=== PATIENT | female | born 1955 | race Caucasian/White ===

== ENCOUNTER → 2016-12-31 | Outpatient (CLI) | payer BC ==
[2016-12-31 10:06] LABS: ABSOLUTE EOSINOPHILS # (AUTO) 0.4 10^3/uL (0.0-0.6); ABSOLUTE LYMPHOCYTES (AUTO) 1.1 10^3/uL (0.5-4.7); ABSOLUTE MONOCYTES (AUTO) 0.5 10^3/uL (0.1-1.4); ABSOLUTE NEUT (AUTO) 6.4 10^3/uL (1.7-8.2); BASOPHILS % (AUTO) 0.5 % (0-2); EOSINOPHILS % (AUTO) 4.9 % (0-6); HEMATOCRIT 44.5 % (36.0-47.0); HGB HCT DIFFERENCE 0.5; MEAN CORPUSCULAR HEMOGLOBIN 32.5 pg (27.0-33.4); MEAN CORPUSCULAR HGB CONC 33.8 g/dL (32.0-36.0); MEAN CORPUSCULAR VOLUME 96 fl (80-97); MONOCYTES % (AUTO) 5.7 % (3-13); RED BLOOD COUNT 4.63 10^6/uL (3.72-5.28); RED CELL DISTRIBUTION WIDTH 14.7 % (11.5-14.0); SEGMENTED NEUTROPHILS % (AUTO) 75.9 % (42-78); WHITE BLOOD COUNT 8.5 10^3/uL (4.0-10.5)
[2016-12-31 10:07] LABS: APPEARANCE,URINE SLIGHTLY-CLOUDY; BILIRUBIN,URINE NEGATIVE (NEGATIVE); GLUCOSE, URINE NEGATIVE (NEGATIVE); KETONES,URINE NEGATIVE (NEGATIVE); LEUKOCYTE ESTERASE,URINE NEGATIVE (NEGATIVE); NITRITE,URINE NEGATIVE (NEGATIVE); PROTEIN,URINE >=500 mg/dL (NEGATIVE); URINE SPECIFIC GRAVITY 1.016; UROBILINOGEN,URINE NEGATIVE mg/dL (<2.0)
[2016-12-31 10:51] LABS: ALBUMIN 3.8 g/dL (3.5-5.0); ANION GAP 15 (5-19); BLOOD UREA NITROGEN 22 mg/dL (7-20); CARBON DIOXIDE 24 mmol/L (22-30); CHLORIDE 104 mmol/L (98-107); CREATININE RESULT 1.09 mg/dL (0.52-1.25); GLUCOSE 99 mg/dL (75-110); PHOSPHORUS 3.8 mg/dL (2.5-4.5); POTASSIUM 4.1 mmol/L (3.6-5.0); SODIUM 143.2 mmol/L (137-145)
[2017-01-01 12:38] LABS: CREATININE URINE 142.9 mg/dL (Not Estab.)
== END ==
LOC: OD 08:48
PROVIDERS: ATTEND Internal Medicine Nephrology
DX: N18.3 Chronic kidney disease, stage 3 (moderate) (principal); E11.29 Type 2 diabetes mellitus with other diabetic kidney complication; E55.9 Vitamin D deficiency, unspecified
CPT/HCPCS: 36415; 80048; 81001; 82040; 82306; 82570; 83036; 83970; 84100; 84156; 85025

== ENCOUNTER → 2017-03-27 | Outpatient (CLI) | payer BC ==
[2017-03-27 09:45] LABS: ANION GAP 10 (5-19); BLOOD UREA NITROGEN 28 mg/dL (7-20); CALCIUM 9.5 mg/dL (8.4-10.2); CARBON DIOXIDE 30 mmol/L (22-30); CHLORIDE 103 mmol/L (98-107); CREATININE RESULT 1.45 mg/dL (0.52-1.25); GLUCOSE 167 mg/dL (75-110); POTASSIUM 5.7 mmol/L (3.6-5.0); SODIUM 142.5 mmol/L (137-145)
[2017-03-27 09:59] LABS: URINE CREATININE 139.2 mg/dL (15-278)
[2017-03-27 10:05] LABS: URINE PROTEIN 265.7 mg/dL (<12)
== END ==
LOC: OD 08:39
PROVIDERS: ATTEND Internal Medicine Nephrology
DX: N18.3 Chronic kidney disease, stage 3 (moderate) (principal); R80.9 Proteinuria, unspecified; E55.9 Vitamin D deficiency, unspecified
CPT/HCPCS: 36415; 80048; 82306; 82570; 84156

== ENCOUNTER → 2017-04-04 | Outpatient (CLI) | payer BC | LOC: OD 08:41 | PROVIDERS: ATTEND Internal Medicine Nephrology | DX: E87.5 Hyperkalemia (principal) | CPT/HCPCS: 36415; 84132 ==

== ENCOUNTER → 2017-06-18 | Outpatient (CLI) | payer BC ==
--- NOTE | 2017-06-18 10:48 | WOMENS IMAGING REPORT ---
EXAM DESCRIPTION: BILAT SCREENING MAMMO W/CAD COMPLETED DATE/TIME: 06/18/2017 10:35 am REASON FOR STUDY: ROUTINE SCREENING; Z12.31 Z12.31 ENCNTR SCREEN MAMMOGRAM FOR MALIGNANT NEOPLASM O F RENALDO COMPARISON: 03/06/2016 and 12/20/2014. TECHNIQUE: Standard craniocaudal and mediolateral oblique views of each breast recorded using digita l acquisition. LIMITATIONS: None. FINDINGS: Findings present which are benign by mammographic criteria. No suspicious masses, calcifi cations or architectural distortion. Pertinent benign findings: Stable benign calcifications. Read with the assistance of CAD. .[facility] - R2 Cenova Version 1.3 .[facility] - R2 Cenova Version 1.3 .[facility] - R2 Cenova Version 2.4 .[facility] [place]2 Cenova Version 2.4 .[facility] - R2 Metal Work Duct Installer Version 9.2 Benign mammographic findings may include one or more of the following: Smooth masses, popcorn/rim/co arse calcifications, asymmetries, post-procedure changes, and lesions with long-standing stability. IMPRESSION: BENIGN MAMMOGRAPHIC FINDINGS. BIRADS 2 BREAST DENSITY: b. There are scattered areas of fibroglandular density. BIRAD: 2 BENIGN FINDING(S) RECOMMENDATION: ROUTINE SCREENING COMMENT: The patient has been notified of the results by letter per SA requirements. Additional no tification policies are in place for contacting patient with suspicious or incomplete findings. Quality ID #[id number]: The [employer] recommends an annual screening mammogram for women aged 40 years or over. This facility utilizes a reminder system to ensure that all patients receive reminder letters, and/or direct phone calls for appointments. This includes reminders for routine scr eening mammograms, diagnostic mammograms, or other Breast Imaging Interventions when appropriate. Th is patient will be placed in the appropriate reminder system. The [employer] (ACR) has developed recommendations for screening MRI of the breast s in certain patient populations, to be used in conjunction with mammography. Breast MRI surveillanc e may be appropriate for women with more than 20% lifetime risk of developing breast cancer as deter mined by genetic testing, significant family history of the disease, or history of mantle radiation f or Hodgkins Disease. ACR Practice Guidelines 2008. TECHNICAL DOCUMENTATION: FINDING NUMBER: (1) ASSESSMENT: (1) JOB ID: [id number] [employer]- All Rights Reserved
== END ==
LOC: WI 10:09
PROVIDERS: ATTEND Family Medicine
DX: Z12.31 Encounter for screening mammogram for malignant neoplasm of breast (principal)
CPT/HCPCS: 77067; G0202

== ENCOUNTER → 2018-12-11 | Outpatient (CLI) | payer BC ==
--- NOTE | 2018-12-11 19:23 | XCELERA REPORT ---
[address] [address] Transthoracic Echocardiogram Report Name: DENNIS FLORES Age: 63 yrs Gender: Female : 1955 Patient Status: Outpatient Patient Location: [facility] Study Date: 12/11/2018 11:21 AM Height: 63 in Weight: 260 lb BSA: 2.2 m2 Procedure: A complete two-dimensional transthoracic echocardiogram was performed (2D, M-mode, spectral and color flow Doppler). The study was technically adequate with some images being suboptimal in quality. Reason For Study: MURMUR Ordering Physician: BAYRON PURDY Performed By: Saundra Blank Interpretation Summary The left ventricular ejection fraction is normal. There is mild concentric left ventricular hypertrophy. The left ventricle is grossly normal size. Doppler measurements suggest pseudonormalized left ventricular relaxation, which is associated with grade II/IV or mild to moderate diastolic dysfunction Wall motion cannot be accurately commented on, but no definite regional wall motion abnormalities noted. The right ventricular systolic function is normal. The right atrium is normal in size Borderline left atrial enlargement. There is a trace amount of mitral regurgitation There is no mitral valve stenosis. There is no aortic valve stenosis No aortic regurgitation is present. There is a mild amount of tricuspid regurgitation There is mild to moderate pulmonary hypertension by echo Right ventricular systolic pressure is estimated to be elevated at 40-50mmHg. The aortic root is not well visualized but is probably normal size. The inferior vena cava appeared normal and decreased < 50% with respiration (RAP 10-15 mmHg) There is no pericardial effusion. MMode/2D Measurements & Calculations RVDd: 3.0 cm LVIDd: 4.1 cm FS: 34.2 % Ao root diam: 2.7 cm IVSd: 1.3 cm LVIDs: 2.7 cm EDV(Teich): 75.5 ml Ao root area: 5.7 cm2 LVPWd: 1.6 cm ESV(Teich): 27.5 ml EF(Teich): 63.6 % Doppler Measurements & Calculations MV E max fabricio: MV dec slope: Ao V2 max: LV V1 max P.7 cm/sec 401.5 cm/sec2 143.6 cm/sec 2.6 mmHg MV A max fabricio: MV dec time: Ao max P.2 mmHg LV V1 max: 117.7 cm/sec 0.20 sec 81.2 cm/sec MV E/A: 0.68 PA V2 max: TR max fabricio: Pulm Sys Fabricio: 77.9 cm/sec 308.7 cm/sec 38.3 cm/sec PA max P.4 mmHg TR max P.1 mmHgPulm Quiñones Fabricio: 48.6 cm/sec Pulm A Revs Fabricio: 23.3 cm/sec Pulm A Revs Dur: 0.12 sec Pulm S/D: 0.79 Left Ventricle The left ventricle is grossly normal size. There is mild concentric left ventricular hypertrophy. The left ventricular ejection fraction is normal. Doppler measurements suggest pseudonormalized left ventricular relaxation, which is associated with grade II/IV or mild to moderate diastolic dysfunction. Wall motion cannot be accurately commented on, but no definite regional wall motion abnormalities noted. Right Ventricle The right ventricle is grossly normal size. There is normal right ventricular wall thickness. The right ventricular systolic function is normal. Atria The right atrium is normal in size. Borderline left atrial enlargement. Interarterial septum not well visualized and not well dopplered. Cannot comment on ASD/PFO presence. Mitral Valve The mitral valve leaflets are sclerotic, but show no functional abnormalities. There is no mitral valve stenosis. There is a trace amount of mitral regurgitation. Aortic Valve The aortic valve is grossly normal. There is no aortic valve stenosis. No aortic regurgitation is present. Tricuspid Valve The tricuspid valve is not well visualized, but is grossly normal. There is no tricuspid stenosis. There is a mild amount of tricuspid regurgitation. There is mild to moderate pulmonary hypertension by echo. Right ventricular systolic pressure is estimated to be elevated at 40-50mmHg. Pulmonic Valve The pulmonic valve is not well visualized. Great Vessels The aortic root is not well visualized but is probably normal size. The inferior vena cava appeared normal and decreased < 50% with respiration (RAP 10-15 mmHg). Effusions There is no pericardial effusion. : BAYRON PURDY > Og Hopson
== END ==
LOC: SP 10:42
PROVIDERS: ATTEND Family Medicine
DX: I10 Essential (primary) hypertension (principal); R01.1 Cardiac murmur, unspecified
CPT/HCPCS: 93306

== ENCOUNTER 2019-03-19 05:32 | Inpatient (IN) | payer BC ==
[2019-03-19 08:47] LABS: HEMATOCRIT 45.5 % (36.0-47.0); HEMOGLOBIN 14.9 g/dL (12.0-15.5); MEAN CORPUSCULAR HEMOGLOBIN 31.4 pg (27.0-33.4); MEAN CORPUSCULAR HGB CONC 32.7 g/dL (32.0-36.0); MEAN CORPUSCULAR VOLUME 96 fl (80-97); PLATELET COUNT 122 10^3/uL (150-450); RED BLOOD COUNT 4.74 10^6/uL (3.72-5.28); RED CELL DISTRIBUTION WIDTH 15.5 % (11.5-14.0); WHITE BLOOD COUNT 7.7 10^3/uL (4.0-10.5)
[2019-03-19 08:56] LABS: INTERNATIONAL RATION (INR) 0.98
[2019-03-19 08:57] LABS: PARTIAL THROMBOPLASTIN TIME 29.2 SEC (23.5-35.8)
[2019-03-19 09:04] LABS: BLOOD UREA NITROGEN 10 mg/dL (7-20); POTASSIUM 3.9 mmol/L (3.6-5.0)
[2019-03-19] MEDS ORDERED: FENTANYL CITRATE INJ/PF 100 MCG/2 ML AMPUL ONE (09:07)
[2019-03-19] MEDS ORDERED: MIDAZOLAM 2 MG/2 ML INJ ONE (09:07)
[2019-03-19] MEDS ORDERED: LISINOPRIL 10 MG TABLET PO ONE (09:30)
--- NOTE | 2019-03-19 11:19 | RADIOLOGY REPORT (SQ) ---
EXAM DESCRIPTION: CT BIOPSY RENAL; CT NEEDLE PLACEMENT COMPLETED DATE/TIME: 03/19/2019 9:58 am REASON FOR STUDY: CHRONIC KIDNEY DISEASE STAGE 3 N18.3 CHRONIC KIDNEY DISEASE, STAGE 3 (MODERATE) R 80.9 PROTEINURIA, UNSPECIFIED COMPARISON: None. RADIATION DOSE: CT Rad equipment meets quality standard of care and radiation dose reduction techniq ues were employed. CTDIvol: 4.0 - 20.3 mGy. DLP: 951 mGy-cm. mGy. LIMITATIONS: None. PROCEDURE: After obtaining informed consent and explaining the risks and benefits of conscious sedat ion,the patient agreed to the procedure. Preliminary CT scanning to localize the biopsy site was performed. A site was marked on the right lo wer pole kidney and time out was performed. Procedure was performed using CT fluoroscopy. Total expo sure time: 5.[address] fluoroscopic images were obtained and saved to PACS. IV conscious sedation was administered and physician direction by the registered nurse using 1 millig carly of Versed and 75 micrograms of fentanyl. Physiologic monitoring was provided before, during, and after sedation. The total sedation time was 30 minutes. Documentation face to face time, the performing proceduralist, spent monitoring the patient: 10 minut es. After sterile skin prep with ChloraPrep, 6 mL of 1% local lidocaine for skin and deep tissue anesthes ia, the right lower pole kidney was localized. A coaxial 18/19 gauge needle was used to obtain 3 core s of tissue from the right lower pole kidney. The biopsy tract was embolized with Gelfoam. Small po st biopsy hematoma in the pararenal fat post procedure. All CT scanners at this facility use dose modulation, iterative reconstruction, and/or weight based d osing when appropriate to reduce radiation dose to as low as reasonably achievable (ALARA). [facility]: Dose Right [facility]: CareDose [facility]: Dose Right [facility]: Teradose 4D [facility]: [employer] FINDINGS: There were no immediate complications. Specimen was carried to cytology on sterile saline gauze and submitted to the mud jack nozzleman for processing. Pathology is pending at the time of dict ation. IMPRESSION: CT GUIDED RIGHT KIDNEY CORTICAL BIOPSY. COMMENT: Patient medication list reviewed:Yes- Quality ID# [id number]:Eligible professional attests to docu menting in the medical record they obtained, updated, or reviewed the patient's current medications.. TECHNICAL DOCUMENTATION: JOB ID: [id number] Quality ID #145: Final reports for procedures using fluoroscopy that document radiation exposure stephy shania, or exposure time and number of fluorographic images (if radiation exposure indices are not avail able) Quality ID # 436: Final reports with documentation of one or more dose reduction techniques (e.g., Au tomated exposure control, adjustment of the mA and/or kV according to patient size, use of iterative reconstruction technique) 2010 [employer]- All Rights Reserved Reading location - IP/workstation name: [email or web address]
--- NOTE | 2019-03-19 11:19 | RADIOLOGY REPORT (SQ) ---
EXAM DESCRIPTION: CT BIOPSY RENAL; CT NEEDLE PLACEMENT COMPLETED DATE/TIME: 03/19/2019 9:58 am REASON FOR STUDY: CHRONIC KIDNEY DISEASE STAGE 3 N18.3 CHRONIC KIDNEY DISEASE, STAGE 3 (MODERATE) R 80.9 PROTEINURIA, UNSPECIFIED COMPARISON: None. RADIATION DOSE: CT Rad equipment meets quality standard of care and radiation dose reduction techniq ues were employed. CTDIvol: 4.0 - 20.3 mGy. DLP: 951 mGy-cm. mGy. LIMITATIONS: None. PROCEDURE: After obtaining informed consent and explaining the risks and benefits of conscious sedat ion,the patient agreed to the procedure. Preliminary CT scanning to localize the biopsy site was performed. A site was marked on the right lo wer pole kidney and time out was performed. Procedure was performed using CT fluoroscopy. Total expo sure time: 5.[address] fluoroscopic images were obtained and saved to PACS. IV conscious sedation was administered and physician direction by the registered nurse using 1 millig carly of Versed and 75 micrograms of fentanyl. Physiologic monitoring was provided before, during, and after sedation. The total sedation time was 30 minutes. Documentation face to face time, the performing proceduralist, spent monitoring the patient: 10 minut es. After sterile skin prep with ChloraPrep, 6 mL of 1% local lidocaine for skin and deep tissue anesthes ia, the right lower pole kidney was localized. A coaxial 18/19 gauge needle was used to obtain 3 core s of tissue from the right lower pole kidney. The biopsy tract was embolized with Gelfoam. Small po st biopsy hematoma in the pararenal fat post procedure. All CT scanners at this facility use dose modulation, iterative reconstruction, and/or weight based d osing when appropriate to reduce radiation dose to as low as reasonably achievable (ALARA). [facility]: Dose Right [facility]: CareDose [facility]: Dose Right [facility]: Teradose 4D [facility]: [employer] FINDINGS: There were no immediate complications. Specimen was carried to cytology on sterile saline gauze and submitted to the porcelain technician for processing. Pathology is pending at the time of dict ation. IMPRESSION: CT GUIDED RIGHT KIDNEY CORTICAL BIOPSY. COMMENT: Patient medication list reviewed:Yes- Quality ID# [id number]:Eligible professional attests to docu menting in the medical record they obtained, updated, or reviewed the patient's current medications.. TECHNICAL DOCUMENTATION: JOB ID: [id number] Quality ID #145: Final reports for procedures using fluoroscopy that document radiation exposure stephy shania, or exposure time and number of fluorographic images (if radiation exposure indices are not avail able) Quality ID # 436: Final reports with documentation of one or more dose reduction techniques (e.g., Au tomated exposure control, adjustment of the mA and/or kV according to patient size, use of iterative reconstruction technique) 2010 [employer] All Rights Reserved Reading location - IP/workstation name: [email or web address]
[2019-03-19 12:07] LABS: HEMATOCRIT 43.1 % (36.0-47.0); HEMOGLOBIN 14.5 g/dL (12.0-15.5); MEAN CORPUSCULAR HEMOGLOBIN 31.9 pg (27.0-33.4); MEAN CORPUSCULAR HGB CONC 33.7 g/dL (32.0-36.0); MEAN CORPUSCULAR VOLUME 95 fl (80-97); PLATELET COUNT 146 10^3/uL (150-450); RED BLOOD COUNT 4.55 10^6/uL (3.72-5.28); RED CELL DISTRIBUTION WIDTH 15.3 % (11.5-14.0); WHITE BLOOD COUNT 6.9 10^3/uL (4.0-10.5)
[2019-03-19] MEDS ORDERED: NORMAL SALINE 500 ML IV ONE (12:30)
[2019-03-19] MEDS ORDERED: LEVALBUTEROL HCL NEB 0.63 MG/3 ML AMPUL NEB PRN (12:58)
[2019-03-19] MEDS ORDERED: GLUCAGON,HUMAN RECOMB 1 MG INJ SUBCUT PRN (12:58)
[2019-03-19] MEDS ORDERED: ACETAMINOPHEN 650 MG SUPP.RECT PR PRN (12:58)
[2019-03-19] MEDS ORDERED: DEXTROSE 40% GEL 15 GM TUBE PO PRN ×2 (12:58)
[2019-03-19] MEDS ORDERED: DEXTROSE 50%-WATER 25 GM/50 ML DISP.SYRIN IV PRN ×2 (12:58)
[2019-03-19] MEDS ORDERED: NORMAL SALINE 250 ML IV PRN ×2 (13:04)
--- NOTE | 2019-03-19 13:04 | RADIOLOGY REPORT (SQ) ---
EXAM DESCRIPTION: CT ABD/PELVIS NO ORAL OR IV COMPLETED DATE/TIME: 03/19/2019 11:42 am REASON FOR STUDY: BIOPSY FOLLOW UP, PER DR. Gonzalez N18.3 CHRONIC KIDNEY DISEASE, STAGE 3 (MODERATE) R80. 9 PROTEINURIA, UNSPECIFIED COMPARISON: CT-guided renal biopsy earlier today TECHNIQUE: CT scan of the abdomen and pelvis performed without intravenous or oral contrast. Images reviewed with lung, soft tissue, and bone windows. Reconstructed coronal and sagittal MPR images revi ewed. All images stored on PACS. All CT scanners at this facility use dose modulation, iterative reconstruction, and/or weight based d osing when appropriate to reduce radiation dose to as low as reasonably achievable (ALARA). [facility]: Dose Right [facility]: CareDose [facility]: Dose Right [facility]: Teradose 4D [facility]: [employer] RADIATION DOSE: CT Rad equipment meets quality standard of care and radiation dose reduction techniq ues were employed. CTDIvol: 28.0 mGy. DLP: 1719 mGy-cm.mGy. LIMITATIONS: None. FINDINGS: CT scanning was performed 2 hours after right lower pole renal cortical biopsy. A right retroperitoneal hematoma is now present measuring about 13 cm craniocaudad by 11 cm AP by 5 c m transverse. There is mass effect on the kidney with flattening of the contour lateral aspect midpo le kidney on axial images 47-52. Small amount of extracapsular hemorrhage is seen in the anterior pararenal space and in the right pos terior pararenal space on axial images 46-52. Clinical assessment immediately prior to, and post CT scanning was performed. Patient was transferred to the ICU for more intensive physiologic monitoring and support with Dr. Bangura. Interventional radiology has been called to assess the patient for po ssible embolization. Post procedure complication discussed with Dr. Espinosa. Remainder of the study demonstrates pulmonary fibrosis at the lung bases, extensive arterial vascular bypass surgery with a right axillary to femoral bypass graft and right to left femoral to femoral by pass graft. Atrophy left kidney. No free intraperitoneal air or fluid or CT signs of bowel obstruct ion. Solid upper abdominal organs are unremarkable. Bony structures are unremarkable. IMPRESSION: Significant post biopsy right subcapsular hemorrhage, right kidney. COMMENT: Quality ID # 436: Final reports with documentation of one or more dose reduction techniques (e.g., Automated exposure control, adjustment of the mA and/or kV according to patient size, use of iterative reconstruction technique) TECHNICAL DOCUMENTATION: JOB ID: [id number] [employer]- All Rights Reserved Reading location - IP/workstation name: [email or web address]
[2019-03-19] MEDS ORDERED: FENTANYL CITRATE INJ/PF 100 MCG/2 ML AMPUL IV PRN ×2 (13:18)
[2019-03-19] MEDS ORDERED: ALPRAZOLAM 0.25 MG TABLET PO PRN (13:28)
[2019-03-19] MEDS ORDERED: PATIROMER 8.4 GM SUSP PACKET PO SCH (13:30)
[2019-03-19 15:00] LABS: HEMOGLOBIN 13.2 g/dL (12.0-15.5); MEAN CORPUSCULAR HEMOGLOBIN 31.5 pg (27.0-33.4); MEAN CORPUSCULAR HGB CONC 32.9 g/dL (32.0-36.0); MEAN CORPUSCULAR VOLUME 96 fl (80-97); PLATELET COUNT 139 10^3/uL (150-450); RED BLOOD COUNT 4.19 10^6/uL (3.72-5.28); RED CELL DISTRIBUTION WIDTH 15.2 % (11.5-14.0)
[2019-03-19 15:18] LABS: WHITE BLOOD COUNT 14.7 10^3/uL (4.0-10.5)
[2019-03-19] MEDS: LISINOPRIL 10 MG TABLET PO SCH ×2 (15:34→22:16)
[2019-03-19] MEDS: GABAPENTIN 400 MG CAPSULE PO SCH ×3 (15:34→22:17)
[2019-03-19 15:54] LABS: ALANINE AMINOTRANSFERASE 24 U/L (9-52); ALBUMIN 2.5 g/dL (3.5-5.0); ALKALINE PHOSPHATASE 78 U/L (38-126); ANION GAP 7 (5-19); ASPARTATE AMINO TRANSFERASE 23 U/L (14-36); BILIRUBIN,DIRECT 0.3 mg/dL (0.0-0.4); BILIRUBIN,TOTAL 0.6 mg/dL (0.2-1.3); BLOOD UREA NITROGEN 13 mg/dL (7-20); CALCIUM 8.4 mg/dL (8.4-10.2); CARBON DIOXIDE 27 mmol/L (22-30); CHLORIDE 106 mmol/L (98-107); CREATINE KINASE 63 U/L (30-135); GLUCOSE 153 mg/dL (75-110); NEONATAL BILIRUBIN RESULT 0.3 mg/dL (0.1-1.1); POTASSIUM 4.1 mmol/L (3.6-5.0); SODIUM 139.5 mmol/L (137-145); TOTAL PROTEIN 5.4 g/dL (6.3-8.2)
--- NOTE | 2019-03-19 16:03 | RADIOLOGY REPORT (SQ) ---
EXAM DESCRIPTION: PICC INSERTION; U/S GUIDE FOR VASCULAR ACCESS COMPLETED DATE/TIME: 03/19/2019 3:53 pm REASON FOR STUDY: access transfusions, frequent labs; ACCESS TRANSFUSION N18.3 CHRONIC KIDNEY DISEA SE, STAGE 3 (MODERATE) R80.9 PROTEINURIA, UNSPECIFIED COMPARISON: None. FLUOROSCOPY TIME: No fluoroscopy 3 portable chest images, 1 ultrasound image saved to PACS. TECHNIQUE: Portable ultrasound guided PICC placement in the ICU. LIMITATIONS: None. PROCEDURE: After written consent and assessment were obtained, the patient was brought into the fluo roscopy room and placed supine on the table. Ultrasound evaluation of potential access sites were per formed. After successfully identifying a patent right basilic vein, the right arm was prepped and angelita ped in a sterile fashion along with the ultrasound probe. The entry site was anesthetized with 1% lid ocaine. A 21 gauge 7 cm needle was advanced through the skin and into the basilic vein under live ult rasound guidance. An ultrasound image was saved to PACS confirming access site. A .018 guide wire w as then inserted through the needle and into the venous system. The needle was then removed and an 11 blade scalpel was used to make a 1cm skin incision. A 5 fr peel-away sheath was advanced over the w roque and into the venous system. A measurement was then made using the existing wire and live fluorosc opic guidance. The wire was then removed and trimmed. The PICC was advanced through the peel-away she ath and into the venous system. The peel-away sheath was removed and the catheter was adhered to the patients arm with a stat lock. The catheter was then aspirated and flushed and a sterile bandage was placed over the access site. A portable chest film was saved to PACS confirming the catheter tip within the superior vena cava. I ncreased interstitial markings are present at both lung bases likely chronic pulmonary fibrosis. IMPRESSION: SUCCESSFUL PLACEMENT OF A 5 FR DUAL LUMEN 40 CM PICC IN THE RIGHT BASILIC VEIN. COMMENT: Patient medication list reviewed: Yes- Quality ID# 130:Eligible professional attests to doc umenting in the medical record they obtained, updated, or reviewed the patient's current medications. . Quality ID 145: Final reports for procedures using fluoroscopy that document radiation exposure stephy shania, or exposure time and number of fluorographic images (if radiation exposure indices are not avail able) Quality ID #76: The patient was prepped and draped using maximum sterile barrier technique including cap, mask, sterile gown, sterile gloves, a large sterile sheet, hand hygiene, and 2% Chlorhexidine fo r cutaneous antisepsis. When ultrasound is used, sterile ultrasound techniques are followed requiring sterile gel and sterile probes. TECHNICAL DOCUMENTATION: JOB ID: [id number] [employer]- All Rights Reserved rev Reading location - IP/workstation name: [email or web address]
[2019-03-19 16:05] LABS: CREATINE KINASE MB 1.5 ng/mL (<4.55); TROPONIN I 0.017 ng/mL
[2019-03-19] MEDS ORDERED: NORMAL SALINE 10 ML SDV (AFTER EACH USE) IV PRN (16:30)
[2019-03-19] MEDS ORDERED: ONDANSETRON HCL INJ/PF 4 MG/2 ML SDV IV PRN (16:30)
[2019-03-19 16:44] LABS: HEMATOCRIT 40.8 % (36.0-47.0); HEMOGLOBIN 13.4 g/dL (12.0-15.5); MEAN CORPUSCULAR HGB CONC 32.8 g/dL (32.0-36.0); MEAN CORPUSCULAR VOLUME 95 fl (80-97); PLATELET COUNT 125 10^3/uL (150-450); RED BLOOD COUNT 4.32 10^6/uL (3.72-5.28); RED CELL DISTRIBUTION WIDTH 15.5 % (11.5-14.0); WHITE BLOOD COUNT 13.7 10^3/uL (4.0-10.5)
[2019-03-19] MEDS: INSULIN LISPRO 100 UNIT/ML 3 ML VIAL SUBCUT SCH ×2 (16:55→22:17)
[2019-03-19 16:57] LABS: INTERNATIONAL RATION (INR) 1.04; PROTHROMBIN TIME 13.6 SEC (11.4-15.4)
[2019-03-19] MEDS ORDERED: FUROSEMIDE INJ/PF 20 MG/2 ML SDV ONE (17:16)
[2019-03-19 18:22] LABS: HEMOGLOBIN 15.2 g/dL (12.0-15.5); MEAN CORPUSCULAR HEMOGLOBIN 30.9 pg (27.0-33.4); MEAN CORPUSCULAR VOLUME 94 fl (80-97); PLATELET COUNT 108 10^3/uL (150-450); RED BLOOD COUNT 4.92 10^6/uL (3.72-5.28); RED CELL DISTRIBUTION WIDTH 15.3 % (11.5-14.0); WHITE BLOOD COUNT 13.4 10^3/uL (4.0-10.5)
[2019-03-19] MEDS ORDERED: GABAPENTIN 300 MG CAPSULE PO SCH (22:00)
[2019-03-19 22:13] LABS: HEMATOCRIT 45.7 % (36.0-47.0); HEMOGLOBIN 15.3 g/dL (12.0-15.5); MEAN CORPUSCULAR HEMOGLOBIN 30.6 pg (27.0-33.4); MEAN CORPUSCULAR HGB CONC 33.5 g/dL (32.0-36.0); MEAN CORPUSCULAR VOLUME 92 fl (80-97); PLATELET COUNT 109 10^3/uL (150-450); RED CELL DISTRIBUTION WIDTH 17.4 % (11.5-14.0); WHITE BLOOD COUNT 12.9 10^3/uL (4.0-10.5)
[2019-03-19] MEDS: ATORVASTATIN CALCIUM 80 MG TABLET PO SCH (22:16)
[2019-03-19] MEDS: DULOXETINE HCL 30 MG CAPSULE.DR PO SCH (22:16)
[2019-03-19] MEDS: NORMAL SALINE 10 ML SDV (SCHEDULED) IV SCH (22:18)
[2019-03-19] MEDS: INSULIN GLARGINE,HUM.REC.ANLOG 1,000 UNIT/10 ML VIAL SUBCUT SCH (22:18)
[2019-03-20 02:09] LABS: MEAN CORPUSCULAR HEMOGLOBIN 30.9 pg (27.0-33.4); MEAN CORPUSCULAR HGB CONC 33.5 g/dL (32.0-36.0); MEAN CORPUSCULAR VOLUME 92 fl (80-97); RED BLOOD COUNT 3.58 10^6/uL (3.72-5.28); WHITE BLOOD COUNT 9.2 10^3/uL (4.0-10.5)
[2019-03-20 02:43] LABS: HEMOGLOBIN 11.1 g/dL (12.0-15.5); PLATELET COUNT 84 10^3/uL (150-450)
[2019-03-20] MEDS ORDERED: NICOTINE 21 MG/24 HR PATCH.TD24 TD PRN (05:51)
[2019-03-20 06:04] LABS: HEMATOCRIT 40.3 % (36.0-47.0); MEAN CORPUSCULAR HEMOGLOBIN 30.5 pg (27.0-33.4); MEAN CORPUSCULAR HGB CONC 33.2 g/dL (32.0-36.0); MEAN CORPUSCULAR VOLUME 92 fl (80-97); PLATELET COUNT 103 10^3/uL (150-450); RED BLOOD COUNT 4.39 10^6/uL (3.72-5.28); WHITE BLOOD COUNT 10.5 10^3/uL (4.0-10.5)
[2019-03-20 06:09] LABS: HEMOGLOBIN 13.4 g/dL (12.0-15.5)
[2019-03-20 06:19] LABS: INTERNATIONAL RATION (INR) 1.03; PROTHROMBIN TIME 13.5 SEC (11.4-15.4)
[2019-03-20 06:20] LABS: PARTIAL THROMBOPLASTIN TIME 24.8 SEC (23.5-35.8)
--- NOTE | 2019-03-20 06:28 | PDOC H&P ---
History of Present Illness Admission Date/PCP: 03/19/19 12:00 BAYRON PURDY MD Patient complains of: Acute hemorrhage status post right renal biopsy History of Present Illness: DENNIS FLORES is a 63 year old female with a complex medical history including severe systemic atherosclerosis (coronary artery stents, carotid endarterectomies, femorofemoral bypass), history of hemorrhagic and ischemic strokes, diabetes mellitus and worsening renal function. Her electrician apprentice, Dr. Espinosa, had ordered a renal biopsy. A lower pole right renal biopsy was performed today. Postoperatively the patient had a significant bleed with large hematoma. She was referred to the hospital service for ICU admission. Past Medical History Cardiac Medical History: Reports: Coronary Artery Disease, DVT, Hyperlipidema, Hypertension, Peripheral Vascular Disease, Other - Carotid artery stenosis, deep venous thrombosis Denies: Myocardial Infarction Pulmonary Medical History: Denies: Asthma, Bronchitis, Chronic Obstructive Pulmonary Disease (COPD), Pneumonia EENT Medical History: Denies: Ears, Nose, Throat Neurological Medical History: Reports: Hemorrhagic CVA, Ischemic CVA, Other - Right hemiplegia, expressive aphasia Denies: Seizures Endocrine Medical History: Reports: Diabetes Mellitus Type 2 Renal/ Medical History: Reports: Chronic Kidney Disease Malignancy Medical History: Reports: None GI Medical History: Denies: Cirrhosis, Diverticulitis, Peptic Ulcer Disease Musculoskeltal Medical History: Denies: Arthritis Skin Medical History: Reports: None Psychiatric Medical History: Reports: Depression, Tobacco Dependency Denies: Alcohol Dependency Hematology: Denies: Anemia Past Surgical History Past Surgical History: Reports: Cardiac Catheterization - With stents x2, Carotid Endarterectomy, Coronary Stent - X2, Vascular Surgery - [id number] bypass, angioplasty of graft,, Other - Bilateral axillary cysts Social History Information Source: Patient, Relative - and daughters, COUNTS INCLUDE 234 BEDS AT THE [facility] Records, Outside Facility Records Lives with: Family, Spouse/Significant other Smoking Status: Current Every Day Smoker Frequency of Alcohol Use: None Hx Recreational Drug Use: No Hx Prescription Drug Abuse: No - Advance Directive Resuscitation Status: Full Code Surrogate healthcare decision maker:: Family History Family History: Reviewed & Not Pertinent, CAD, CVA, DM, Hypertension Parental Family History Reviewed: Yes Children Family History Reviewed: Yes Sibling(s) Family History Reviewed.: Yes Medication/Allergy Home Medications: Ezetimibe [Zetia 10 mg Tablet] 10 mg PO DAILY 03/19/19 Furosemide [Lasix 20 mg Tablet] 20 mg PO QAM 03/19/19 Gabapentin [Neurontin 300 mg Capsule] 300 mg PO QHS 03/19/19 Insulin Aspart [Novolog Flexpen] 0 unit SUBCUT .SLD SCALE 03/19/19 Lisinopril [Prinivil] 20 mg PO DAILY 03/19/19 Patiromer Calcium Sorbitex [Veltassa] 16.8 gm PO DAILY 03/19/19 Warfarin Sodium [Coumadin 5 mg Tablet] 5 mg PO DAILY 03/19/19 Allergies/Adverse Reactions: Latex, Natural Rubber Allergy (Verified 03/19/19 06:21) Review of Systems ROS unobtainable: Other Constitutional: PRESENT: as per HPI. ABSENT: chills, fatigue, fever(s), headache(s) Eyes: ABSENT: visual disturbances Ears: ABSENT: hearing changes Nose, Mouth, and Throat: ABSENT: mouth pain, sore throat Cardiovascular: PRESENT: edema. ABSENT: chest pain, palpitations Respiratory: ABSENT: cough, dyspnea, hemoptysis Gastrointestinal: PRESENT: abdominal pain - Right flank. ABSENT: constipation, diarrhea, dysphagia, nausea, vomiting Genitourinary: ABSENT: dysuria, hematuria Integumentary: PRESENT: diaphoresis Neurological: PRESENT: abnormal speech - Expressive aphasia, other - Right hemiparesis with right foot drop. Neuropathy.. ABSENT: memory loss Psychiatric: PRESENT: anxiety, depression Endocrine: ABSENT: cold intolerance, heat intolerance, polydipsia, polyuria Hematologic/Lymphatic: ABSENT: easy bleeding, easy bruising Physical Exam Vital Signs: Temp Pulse Resp BP Pulse Ox 97.6 F 72 13 135/84 H 100 03/19/19 12:44 03/19/19 12:44 03/19/19 12:44 03/19/19 12:44 03/19/19 12:44 Intake & Output 03/18/19 03/19/19 03/20/19 06:59 06:59 06:59 Weight 117.027 kg 120.1 kg General appearance: PRESENT: morbidly obese, severe distress, well-developed Head exam: PRESENT: atraumatic, normocephalic Eye exam: PRESENT: conjunctiva pale. ABSENT: scleral icterus Ear exam: PRESENT: normal external ear exam Mouth exam: PRESENT: dry mucosa, tongue midline Neck exam: ABSENT: carotid bruit, JVD, lymphadenopathy Respiratory exam: PRESENT: clear to auscultation srikanth. ABSENT: accessory muscle use, rales, rhonchi, wheezes Cardiovascular exam: PRESENT: RRR, +S1, +S2 GI/Abdominal exam: PRESENT: normal bowel sounds, soft, tenderness - Significant tenderness right flank. ABSENT: distended Rectal exam: PRESENT: deferred Gentrourinary exam: ABSENT: indwelling catheter Extremities exam: PRESENT: pedal edema Neurological exam: PRESENT: alert, awake, oriented to person, oriented to place, oriented to situation, motor sensory deficit - Right arm and leg weakness. Normal strength left side. Psychiatric exam: PRESENT: anxious, flat affect. ABSENT: agitated Focused psych exam: ABSENT: delusional, restlessness Skin exam: PRESENT: pallor Results Laboratory Results: 03/19/19 11:58 03/19/19 07:07 03/19/19 03/19/19 03/19/19 07:07 07:07 11:58 WBC 7.7 6.9 RBC 4.74 4.55 Hgb 14.9 14.5 Hct 45.5 43.1 MCV 96 95 MCH 31.4 31.9 MCHC 32.7 33.7 RDW 15.5 H 15.3 H Plt Count 122 L 146 L Potassium 3.9 BUN 10 Creatinine 0.99 Est GFR ( Amer) > 60 Est GFR (Non-Af Amer) 57 L Blood Type Antibody Screen 03/19/19 11:58 WBC RBC Hgb Hct MCV MCH MCHC RDW Plt Count Potassium BUN Creatinine Est GFR ( Amer) Est GFR (Non-Af Amer) Blood Type A POSITIVE Antibody Screen NEGATIVE Impressions: Abdomen/Pelvis CT 03/19/19 00:00 IMPRESSION: Significant post biopsy right subcapsular hemorrhage, right kidney. Guidance Needle Placement CT 03/19/19 00:00 IMPRESSION: CT GUIDED RIGHT KIDNEY CORTICAL BIOPSY. Renal Biopsy CT 03/19/19 00:00 IMPRESSION: CT GUIDED RIGHT KIDNEY CORTICAL BIOPSY. Assessment and Plan - Diagnosis (1) Hemorrhage following kidney biopsy Is this a current diagnosis for this admission?: Yes Plan: 03/19/2019-the hospital service was called to the postanesthesia unit. The patient was undergoing a renal biopsy in the right lower pole and developed acute hemorrhage with perinephric hematoma. The patient had developed significant pallor with diuresis and right flank pain. The radiologist had already ordered 4 units of packed red blood cells to be transfused. The patient will be admitted to the ICU with serial hemoglobins. Interventional radiology was called. They did assess the patient and felt that she was stable enough not to attempt coiling. (2) Acute blood loss anemia Is this a current diagnosis for this admission?: Yes Plan: 03/19/2019-the patient exhibited marked pallor and diaphoresis. 4 units of packed red blood cells will be administered and she will be monitored closely. (3) Diabetes mellitus type 2 in obese Is this a current diagnosis for this admission?: Yes Plan: 03/19/2019-the patient will be on Lantus and sliding scale insulin coverage. We will adjust Lantus based on sliding scale requirements. (4) Hypertension Qualifiers: Hypertension type: essential hypertension Qualified Code(s): I10 - Essential (primary) hypertension Is this a current diagnosis for this admission?: Yes Plan: 03/19/2019-the family reports that the patient has significant hypertension. In fact this is led to marked atherosclerotic disease requiring multiple surgeries including carotid endarterectomy, aortobifemoral bypass and several strokes. She is on metoprolol and lisinopril and based on how her blood pressure response to the hemorrhage we will continue those medications and monitor her pressures. If she does develop hypotension from the hemorrhage then we will use vasopressors. (5) Hemiparesis affecting right side as late effect of cerebrovascular accident Is this a current diagnosis for this admission?: Yes Plan: 03/19/2019-the patient has a history of 2 ischemic strokes and a large hemorrhagic stroke. As a late effect of her stroke she does have right hemiparesis with right foot drop and diminished function in the right hand. Once stable we will have physical therapy work with the patient. (6) Expressive aphasia Is this a current diagnosis for this admission?: Yes Plan: 03/19/2019-the family does report expressive aphasia as late effect of her strokes. During this critical window it is difficult to assess. She did participate verbally during the encounter but it was limited. We will continue to assess. (7) Morbid obesity with BMI of 45.0-49.9, adult Is this a current diagnosis for this admission?: Yes Plan: 03/19/2019-she would benefit significantly from weight loss considering all of her comorbidities. In addition to the diabetic/cardiac diet we will suggest more aggressive dieting for weight loss. (8) Tobacco dependency Is this a current diagnosis for this admission?: Yes Plan: 03/19/2019-it is shocking that with her multiple comorbidities she continues to smoke. A and nicotine patch will be made available. Due to the critical nature of this illness smoking cessation was not discussed at this time. (9) Chronic kidney failure Qualifiers: Chronic kidney disease stage: stage 3 (moderate) Qualified Code(s): N18.3 - Chronic kidney disease, stage 3 (moderate) Is this a current diagnosis for this admission?: Yes Plan: 03/19/2019-the patient does have chronic kidney failure and in fact was undergoing biopsy per order of her electrician apprentice. She is currently at stage III. With the hemorrhage we will continue to monitor her renal function. Nephrology has been notified of her admission. - Time Time Spent with patient: 35 or more minutes Medications reviewed and adjusted accordingly: Yes - Inpatient Certification Based on my medical assessment, after consideration of the patient's comorbidities, presenting symptoms, or acuity I expect that the services needed warrant INPATIENT care.: Yes I certify that my determination is in accordance with my understanding of Medicare's requirements for reasonable and necessary INPATIENT services [42 CFR 412.3e].: Yes Medical Necessity: Significant Comorbidiites Make Outpatient Treatment Too Risky, Need For IV Fluids, Need for Pain Control, Risk of Complication if Not Cared For in Hospital Post Hospital Care: D/C Mobile Device Developer Documentation
[2019-03-20 06:29] LABS: ALANINE AMINOTRANSFERASE 23 U/L (9-52); ALBUMIN 2.4 g/dL (3.5-5.0); ALKALINE PHOSPHATASE 77 U/L (38-126); ANION GAP 6 (5-19); ASPARTATE AMINO TRANSFERASE 22 U/L (14-36); BILIRUBIN,DIRECT 0.2 mg/dL (0.0-0.4); BILIRUBIN,TOTAL 0.6 mg/dL (0.2-1.3); BLOOD UREA NITROGEN 18 mg/dL (7-20); CALCIUM 8.2 mg/dL (8.4-10.2); CARBON DIOXIDE 28 mmol/L (22-30); CHLORIDE 106 mmol/L (98-107); GLUCOSE 110 mg/dL (75-110); POTASSIUM 4.2 mmol/L (3.6-5.0); SODIUM 139.9 mmol/L (137-145)
[2019-03-20] MEDS: INSULIN LISPRO 100 UNIT/ML 3 ML VIAL SUBCUT SCH ×4 (08:46→21:30)
[2019-03-20] MEDS ORDERED: EZETIMIBE 10 MG TABLET PO SCH (10:00)
[2019-03-20] MEDS: GABAPENTIN 400 MG CAPSULE PO SCH ×4 (10:27→21:29)
[2019-03-20] MEDS: FUROSEMIDE 20 MG TABLET PO SCH (10:27)
[2019-03-20] MEDS: NORMAL SALINE 10 ML SDV (SCHEDULED) IV SCH ×2 (10:28→21:30)
[2019-03-20 10:45] LABS: HEMATOCRIT 38.2 % (36.0-47.0); HEMOGLOBIN 12.8 g/dL (12.0-15.5); MEAN CORPUSCULAR HEMOGLOBIN 30.6 pg (27.0-33.4); MEAN CORPUSCULAR HGB CONC 33.5 g/dL (32.0-36.0); MEAN CORPUSCULAR VOLUME 91 fl (80-97); PLATELET COUNT 111 10^3/uL (150-450); RED BLOOD COUNT 4.19 10^6/uL (3.72-5.28); RED CELL DISTRIBUTION WIDTH 16.9 % (11.5-14.0); WHITE BLOOD COUNT 11.9 10^3/uL (4.0-10.5)
--- NOTE | 2019-03-20 12:38 | RADIOLOGY REPORT (SQ) ---
EXAM DESCRIPTION: CHEST SINGLE VIEW COMPLETED DATE/TIME: 03/20/2019 12:30 pm REASON FOR STUDY: dyspnea COMPARISON: AP chest 03/19/2019 EXAM PARAMETERS: NUMBER OF VIEWS: One view. TECHNIQUE: Single frontal radiographic view of the chest acquired. RADIATION DOSE: NA LIMITATIONS: None. FINDINGS: LUNGS AND PLEURA: Chronic increased interstitial markings at both lung bases. No acute in filtrates. No pleural effusion or pneumothorax. MEDIASTINUM AND HILAR STRUCTURES: No masses. Contour normal. HEART AND VASCULAR STRUCTURES: Stable mild cardiomegaly BONES: No acute findings. HARDWARE: Right PICC line tip superior vena cava OTHER: No other significant finding. IMPRESSION: NO ACUTE RADIOGRAPHIC FINDING IN THE CHEST. TECHNICAL DOCUMENTATION: JOB ID: [id number] [employer]- All Rights Reserved Reading location - IP/workstation name: [email or web address]
[2019-03-20] MEDS: METOPROLOL SUCCINATE 25 MG TAB.SR.24H PO SCH (12:58)
[2019-03-20] MEDS: EZETIMIBE 10 MG TABLET PO SCH (12:58)
[2019-03-20] MEDS: PATIROMER 8.4 GM SUSP PACKET PO SCH (12:59)
[2019-03-20] MEDS: ACETAMINOPHEN 325 MG TABLET PO PRN (15:44)
[2019-03-20] MEDS: ALBUMIN HUMAN 12.5 GM/50 ML RTUINJ IV SCH ×2 (15:45→16:42)
[2019-03-20] MEDS ORDERED: FUROSEMIDE INJ/PF 20 MG/2 ML SDV IV SCH (16:00)
[2019-03-20 16:16] LABS: HEMOGLOBIN 12.6 g/dL (12.0-15.5); MEAN CORPUSCULAR HEMOGLOBIN 30.4 pg (27.0-33.4); MEAN CORPUSCULAR HGB CONC 33.1 g/dL (32.0-36.0); MEAN CORPUSCULAR VOLUME 92 fl (80-97); PLATELET COUNT 113 10^3/uL (150-450); RED BLOOD COUNT 4.13 10^6/uL (3.72-5.28); RED CELL DISTRIBUTION WIDTH 17.1 % (11.5-14.0); WHITE BLOOD COUNT 11.1 10^3/uL (4.0-10.5)
[2019-03-20 18:37] LABS: HEMATOCRIT 35.9 % (36.0-47.0); MEAN CORPUSCULAR HEMOGLOBIN 30.7 pg (27.0-33.4); MEAN CORPUSCULAR HGB CONC 33.5 g/dL (32.0-36.0); MEAN CORPUSCULAR VOLUME 92 fl (80-97); PLATELET COUNT 107 10^3/uL (150-450); RED BLOOD COUNT 3.92 10^6/uL (3.72-5.28); RED CELL DISTRIBUTION WIDTH 16.8 % (11.5-14.0); WHITE BLOOD COUNT 10.5 10^3/uL (4.0-10.5)
[2019-03-20] MEDS ORDERED: HYDRALAZINE HCL INJ/PF 20 MG/1 ML SDV IV PRN (20:34)
[2019-03-20] MEDS: ATORVASTATIN CALCIUM 80 MG TABLET PO SCH (21:29)
[2019-03-20] MEDS: DULOXETINE HCL 30 MG CAPSULE.DR PO SCH (21:29)
[2019-03-20] MEDS: INSULIN GLARGINE,HUM.REC.ANLOG 1,000 UNIT/10 ML VIAL SUBCUT SCH (21:31)
[2019-03-21 05:12] LABS: ABSOLUTE BASOPHILS # (AUTO) 0.1 10^3/uL (0.0-0.2); ABSOLUTE EOSINOPHILS # (AUTO) 0.2 10^3/uL (0.0-0.6); ABSOLUTE LYMPHOCYTES (AUTO) 0.9 10^3/uL (0.5-4.7); ABSOLUTE MONOCYTES (AUTO) 0.7 10^3/uL (0.1-1.4); ABSOLUTE NEUT (AUTO) 8.3 10^3/uL (1.7-8.2); BASOPHILS % (AUTO) 0.7 % (0-2); EOSINOPHILS % (AUTO) 1.8 % (0-6); HEMATOCRIT 35.6 % (36.0-47.0); LYMPHOCYTES % (AUTO) 8.6 % (13-45); MEAN CORPUSCULAR HGB CONC 33.7 g/dL (32.0-36.0); MEAN CORPUSCULAR VOLUME 92 fl (80-97); MONOCYTES % (AUTO) 6.7 % (3-13); PLATELET COUNT 105 10^3/uL (150-450); RED BLOOD COUNT 3.86 10^6/uL (3.72-5.28); RED CELL DISTRIBUTION WIDTH 17.5 % (11.5-14.0); SEGMENTED NEUTROPHILS % (AUTO) 82.2 % (42-78); TOTAL CELLS COUNTED % (AUTO) 100 %; WHITE BLOOD COUNT 10.1 10^3/uL (4.0-10.5)
[2019-03-21 05:30] LABS: ALBUMIN 2.7 g/dL (3.5-5.0); ANION GAP 5 (5-19); BLOOD UREA NITROGEN 24 mg/dL (7-20); CALCIUM 9.1 mg/dL (8.4-10.2); CARBON DIOXIDE 30 mmol/L (22-30); CHLORIDE 104 mmol/L (98-107); GLUCOSE 143 mg/dL (75-110); PHOSPHORUS 4.9 mg/dL (2.5-4.5); SODIUM 138.7 mmol/L (137-145)
--- NOTE | 2019-03-21 06:16 | PDOC PROGRESS REPORT ---
Subjective Progress Note for:: 03/20/19 Subjective:: Patient is markedly improved today. Family is quite pleased. Reason For Visit: ACUTE ARTERIAL BLEED POST RIGHT RENAL BIOPSY W Physical Exam Vital Signs: Temp Pulse Resp BP Pulse Ox 98.6 F 77 16 113/62 92 03/20/19 08:00 03/20/19 10:00 03/20/19 10:17 03/20/19 10:17 03/20/19 10:17 Intake & Output 03/19/19 03/20/19 03/21/19 06:59 06:59 06:59 Intake Total 1400 Output Total 235 75 Balance 1165 -75 Weight 117.027 kg 120.1 kg General appearance: PRESENT: no acute distress, cooperative, morbidly obese, well-developed Head exam: PRESENT: atraumatic, normocephalic Eye exam: PRESENT: conjunctiva pale. ABSENT: scleral icterus Ear exam: PRESENT: normal external ear exam Neck exam: ABSENT: carotid bruit, JVD, lymphadenopathy Respiratory exam: PRESENT: rales, symmetrical, unlabored. ABSENT: accessory muscle use, rhonchi, tachypnea, wheezes Cardiovascular exam: PRESENT: RRR, +S1, +S2 GI/Abdominal exam: PRESENT: hypoactive bowel sounds, soft, tenderness - Tenderness is decreased on the left flank, other - Protuberant abdomen. ABSENT: guarding Rectal exam: PRESENT: deferred Extremities exam: PRESENT: pedal edema, +1 edema. ABSENT: tenderness Neurological exam: PRESENT: alert, awake, oriented to person, oriented to place, oriented to time, oriented to situation, motor sensory deficit - Weakness right foot and right hand Psychiatric exam: PRESENT: flat affect. ABSENT: agitated, anxious Focused psych exam: ABSENT: delusional, restlessness Skin exam: ABSENT: pallor Results Laboratory Results: 03/20/19 10:30 03/20/19 05:40 03/19/19 03/19/19 03/19/19 11:58 11:58 14:14 WBC 6.9 Cancelled RBC 4.55 Cancelled Hgb 14.5 Cancelled Hct 43.1 Cancelled MCV 95 Cancelled MCH 31.9 Cancelled MCHC 33.7 Cancelled RDW 15.3 H Cancelled Plt Count 146 L Cancelled Sodium Potassium Chloride Carbon Dioxide Anion Gap BUN Creatinine Est GFR ( Amer) Est GFR (Non-Af Amer) Glucose Calcium Total Bilirubin AST ALT Alkaline Phosphatase Total Protein Albumin Blood Type A POSITIVE Antibody Screen NEGATIVE 03/19/19 03/19/19 03/19/19 14:51 14:51 16:15 WBC 14.7 H D 13.7 H RBC 4.19 4.32 Hgb 13.2 13.4 Hct 40.0 40.8 MCV 96 95 MCH 31.5 31.0 MCHC 32.9 32.8 RDW 15.2 H 15.5 H Plt Count 139 L 125 L Sodium 139.5 Potassium 4.1 Chloride 106 Carbon Dioxide 27 Anion Gap 7 BUN 13 Creatinine 1.45 H Est GFR ( Amer) 44 L Est GFR (Non-Af Amer) 37 L Glucose 153 H Calcium 8.4 Total Bilirubin 0.6 AST 23 ALT 24 Alkaline Phosphatase 78 Total Protein 5.4 L Albumin 2.5 L Blood Type Antibody Screen 03/19/19 03/19/19 03/20/19 17:58 22:03 01:54 WBC 13.4 H 12.9 H 9.2 RBC 4.92 5.00 3.58 L Hgb 15.2 15.3 11.1 L D Hct 46.0 45.7 33.0 L MCV 94 92 92 MCH 30.9 30.6 30.9 MCHC 33.0 33.5 33.5 RDW 15.3 H 17.4 H 17.0 H Plt Count 108 L 109 L 84 L Sodium Potassium Chloride Carbon Dioxide Anion Gap BUN Creatinine Est GFR ( Amer) Est GFR (Non-Af Amer) Glucose Calcium Total Bilirubin AST ALT Alkaline Phosphatase Total Protein Albumin Blood Type Antibody Screen 03/20/19 03/20/19 03/20/19 05:40 05:40 10:30 WBC 10.5 11.9 H RBC 4.39 4.19 Hgb 13.4 D 12.8 Hct 40.3 38.2 MCV 92 91 MCH 30.5 30.6 MCHC 33.2 33.5 RDW 17.0 H 16.9 H Plt Count 103 L 111 L Sodium 139.9 Potassium 4.2 Chloride 106 Carbon Dioxide 28 Anion Gap 6 BUN 18 Creatinine 2.01 H Est GFR ( Amer) 30 L Est GFR (Non-Af Amer) 25 L Glucose 110 Calcium 8.2 L Total Bilirubin 0.6 AST 22 ALT 23 Alkaline Phosphatase 77 Total Protein 5.0 L Albumin 2.4 L Blood Type Antibody Screen 03/19/19 03/19/19 14:51 14:51 Creatine Kinase 63 CK-MB (CK-2) 1.50 Troponin I 0.017 Impressions: Abdomen/Pelvis CT 03/19/19 00:00 IMPRESSION: Significant post biopsy right subcapsular hemorrhage, right kidney. Guidance Needle Placement CT 03/19/19 00:00 IMPRESSION: CT GUIDED RIGHT KIDNEY CORTICAL BIOPSY. Interventional Vascular Procedure 03/19/19 00:00 IMPRESSION: SUCCESSFUL PLACEMENT OF A 5 FR DUAL LUMEN 40 CM PICC IN THE RIGHT BASILIC VEIN. PICC Line Insertion 03/19/19 00:00 IMPRESSION: SUCCESSFUL PLACEMENT OF A 5 FR DUAL LUMEN 40 CM PICC IN THE RIGHT BASILIC VEIN. Renal Biopsy CT 03/19/19 00:00 IMPRESSION: CT GUIDED RIGHT KIDNEY CORTICAL BIOPSY. Assessment and Plan - Diagnosis (1) Hemorrhage following kidney biopsy Is this a current diagnosis for this admission?: Yes Plan: 03/19/2019-the hospital service was called to the postanesthesia unit. The patient was undergoing a renal biopsy in the right lower pole and developed acute hemorrhage with perinephric hematoma. The patient had developed signi ficant pallor with diuresis and right flank pain. The radiologist had already ordered 4 units of packed red blood cells to be transfused. The patient will be admitted to the ICU with serial hemoglobins. Interventional radiology was called. They did assess the patient and felt that she was stable enough not to attempt coiling. 03/20/2019-the patient did receive 4 units of packed red blood cells. Her hemoglobin did transiently decrease. It was 11.1 early this morning and the subsequent check midmorning was 13. We will continue to monitor. She is less tender on the right flank although she still complains of pain especially with movement. (2) Acute blood loss anemia Is this a current diagnosis for this admission?: Yes Plan: 03/19/2019-the patient exhibited marked pallor and diaphoresis. 4 units of packed red blood cells will be administered and she will be monitored closely. 03/20/2019-as noted above after the 4 units of packed red blood cells the patient's hemoglobin was normal. However since that time, with equilibration through her body, her hemoglobin has decreased. As of mid morning it has rebounded to 13.1 from 11.1. We will continue to monitor. If stable can change to daily CBCs in the morning. (3) Diabetes mellitus type 2 in obese Is this a current diagnosis for this admission?: Yes Plan: 03/19/2019-the patient will be on Lantus and sliding scale insulin coverage. We will adjust Lantus based on sliding scale requirements. 03/20/2019-continue current insulin regimen. The patient has had good glucose control with all Accu-Cheks less than 200. As her diet improves we may need to adjust but the goal is to return to her baseline dosing. (4) Hypertension Qualifiers: Hypertension type: essential hypertension Qualified Code(s): I10 - Essential (primary) hypertension Is this a current diagnosis for this admission?: Yes Plan: 03/19/2019-the family reports that the patient has significant hypertension. In fact this is led to marked atherosclerotic disease requiring multiple surgeries including carotid endarterectomy, aortobifemoral bypass and several strokes. She is on metoprolol and lisinopril and based on how her blood pressure response to the hemorrhage we will continue those medications and monitor her pressures. If she does develop hypotension from the hemorrhage then we will use vasopressors. 03/20/2019-because of low blood pressures with the hemorrhage her lisinopril was in fact discontinued. She remained on the metoprolol with parameters. We are also using diuretics to help compensate for the high volume with all of her transfusions. As her blood pressure increases she will likely be able to return to her home medication regimen. (5) Hemiparesis affecting right side as late effect of cerebrovascular accident Is this a current diagnosis for this admission?: Yes Plan: 03/19/2019-the patient has a history of 2 ischemic strokes and a large hemorrhagic stroke. As a late effect of her stroke she does have right hemiparesis with right foot drop and diminished function in the right hand. Once stable we will have physical therapy work with the patient. 03/20/2019-physical therapy has been asked to evaluate the patient. (6) Expressive aphasia Is this a current diagnosis for this admission?: Yes Plan: 03/19/2019-the family does report expressive aphasia as late effect of her strokes. During this critical window it is difficult to assess. She did participate verbally during the encounter but it was limited. We will continue to assess. 03/20/2019-this morning she participated in the discussion. There is minimal deficit noted. No acute intervention since this is a late effect of her previous stroke. (7) Morbid obesity with BMI of 45.0-49.9, adult Is this a current diagnosis for this admission?: Yes Plan: 03/19/2019-she would benefit significantly from weight loss considering all of her comorbidities. In addition to the diabetic/cardiac diet we will suggest more aggressive dieting for weight loss. 03/20/2019-the patient should can consider aggressive dieting as this will help her diabetes and hypertension as well. (8) Tobacco dependency Is this a current diagnosis for this admission?: Yes Plan: 03/19/2019-it is shocking that with her multiple comorbidities she continues to smoke. A and nicotine patch will be made available. Due to the critical nature of this illness smoking cessation was not discussed at this time. 03/20/2019-considering the amount of atherosclerotic disease, the patient's smoking as significant detriment to her health. Encourage cessation. (9) Chronic kidney failure Qualifiers: Chronic kidney disease stage: stage 3 (moderate) Qualified Code(s): N18.3 - Chronic kidney disease, stage 3 (moderate) Is this a current diagnosis for this admission?: Yes Plan: 03/19/2019-the patient does have chronic kidney failure and in fact was undergoing biopsy per order of her patient access registrar. She is currently at stage III. With the hemorrhage we will continue to monitor her renal function. Nephrology has been notified of her admission. 03/20/2019-the serum creatinine did increase from her baseline. This was most likely due to the hypoperfusion associated with the acute hemorrhage. We will continue to monitor her renal function. Dr. Espinosa, her patient access registrar, states that her usual creatinine is approximately 1.4-1.5. (10) CHF (congestive heart failure) Qualifiers: Heart failure type: diastolic Heart failure chronicity: chronic Qualified Code(s): I50.32 - Chronic diastolic (congestive) heart failure Is this a current diagnosis for this admission?: Yes Plan: 03/20/2019-echocardiogram from November of this year reveals grade 2/4 diastolic failure with preserved ejection fraction. As noted above we will institute diuretic therapy to help compensate for the significant volume associated with her resuscitation post hemorrhage. - Time Time Spent with patient: 35 or more minutes Medications reviewed and adjusted accordingly: Yes Anticipated discharge: Home
[2019-03-21] MEDS: MAGNESIUM SULFATE/D5W 1 GM/100 ML RTUPB IV SCH ×2 (06:27→08:19)
[2019-03-21] MEDS: INSULIN LISPRO 100 UNIT/ML 3 ML VIAL SUBCUT SCH ×4 (08:18→22:19)
[2019-03-21] MEDS: FUROSEMIDE 20 MG TABLET PO SCH (08:19)
[2019-03-21] MEDS: GABAPENTIN 400 MG CAPSULE PO SCH ×4 (10:14→22:17)
[2019-03-21] MEDS: METOPROLOL SUCCINATE 25 MG TAB.SR.24H PO SCH (10:14)
[2019-03-21] MEDS: EZETIMIBE 10 MG TABLET PO SCH (10:14)
[2019-03-21] MEDS: NORMAL SALINE 10 ML SDV (SCHEDULED) IV SCH ×2 (10:15→22:19)
[2019-03-21] MEDS ORDERED: MAGNESIUM HYDROXIDE SUSP 30 ML UDCUP PO PRN (10:19)
--- NOTE | 2019-03-21 11:50 | PDOC CONSULTATION ---
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 She has been on lifelong anticoagulation because she has had recurrent arterial and venous thrombotic events. She is on warfarin currently. Her INR upon admission was less than 1. But she did end up having hematoma post kidney biopsy. Thus far she did receive 4 units of packed red blood cell, and her hemoglobin is been stable thereafter. Past Medical History Cardiac Medical History: Reports: Coronary Artery Disease, DVT, Hyperlipidema, Hypertension, Peripheral Vascular Disease, Other - Carotid artery stenosis, deep venous thrombosis Denies: Myocardial Infarction Pulmonary Medical History: Denies: Asthma, Bronchitis, Chronic Obstructive Pulmonary Disease (COPD), Pneumonia EENT Medical History: Denies: Ears, Nose, Throat Neurological Medical History: Reports: Hemorrhagic CVA, Ischemic CVA, Other - Right hemiplegia, expressive aphasia Denies: Seizures Endocrine Medical History: Reports: Diabetes Mellitus Type 2 Renal/ Medical History: Reports: Chronic Kidney Disease Malignancy Medical History: Reports: None GI Medical History: Denies: Cirrhosis, Diverticulitis, Peptic Ulcer Disease Musculoskeltal Medical History: Denies: Arthritis Skin Medical History: Reports: None Psychiatric Medical History: Reports: Depression, Tobacco Dependency Denies: Alcohol Dependency Hematology: Denies: Anemia Past Surgical History Past Surgical History: Reports: Cardiac Catheterization - With stents x2, Carotid Endarterectomy, Coronary Stent - X2, Vascular Surgery - [id number] bypass, angioplasty of graft,, Other - Bilateral axillary cysts Social History Information Source: Patient Lives with: Family, Spouse/Significant other Smoking Status: Current Every Day Smoker Cigarettes Packs Per Day: 1 Frequency of Alcohol Use: None Hx Recreational Drug Use: No Drugs: None Hx Prescription Drug Abuse: No - Advance Directive Resuscitation Status: Full Code Family History Family History: Reviewed & Not Pertinent, CAD, CVA, DM, Hypertension Parental Family History Reviewed: Yes Children Family History Reviewed: Yes Sibling(s) Family History Reviewed.: Yes Medication/Allergy Home Medications: Ezetimibe [Zetia 10 mg Tablet] 10 mg PO DAILY 03/19/19 Furosemide [Lasix 20 mg Tablet] 20 mg PO QAM 03/19/19 Gabapentin [Neurontin 300 mg Capsule] 300 mg PO QHS 03/19/19 Insulin Aspart [Novolog Flexpen] 0 unit SUBCUT .SLD SCALE 03/19/19 Lisinopril [Prinivil] 20 mg PO DAILY 03/19/19 Patiromer Calcium Sorbitex [Veltassa] 16.8 gm PO DAILY 03/19/19 Warfarin Sodium [Coumadin 5 mg Tablet] 5 mg PO DAILY 03/19/19 Allergies/Adverse Reactions: Latex, Natural Rubber Allergy (Verified 03/19/19 06:21) Review of Systems Constitutional: ABSENT: chills, fever(s), headache(s), weight gain, weight loss Eyes: ABSENT: visual disturbances Ears: ABSENT: hearing changes Cardiovascular: ABSENT: chest pain, dyspnea on exertion, edema, orthropnea, palpitations Respiratory: ABSENT: cough, hemoptysis Gastrointestinal: ABSENT: abdominal pain, constipation, diarrhea, hematemesis, hematochezia, nausea, vomiting Genitourinary: ABSENT: dysuria, hematuria Musculoskeletal: ABSENT: joint swelling Integumentary: ABSENT: rash, wounds Neurological: ABSENT: abnormal gait, abnormal speech, confusion, dizziness, focal weakness, syncope Psychiatric: ABSENT: anxiety, depression, homidical ideation, suicidal ideation Endocrine: ABSENT: cold intolerance, heat intolerance, polydipsia, polyuria Hematologic/Lymphatic: ABSENT: easy bleeding, easy bruising Physical Exam Vital Signs: Temp Pulse Resp BP Pulse Ox 98.4 F 84 16 149/77 H 96 03/21/19 07:31 03/21/19 10:53 03/21/19 10:53 03/21/19 07:31 03/21/19 07:31 Intake & Output 03/20/19 03/21/19 03/22/19 06:59 06:59 06:59 Intake Total 1400 738 200 Output Total 235 2370 Balance 1165 -1632 200 Weight 120.1 kg 123.3 kg General appearance: PRESENT: no acute distress, well-developed, well-nourished Head exam: PRESENT: atraumatic, normocephalic Eye exam: PRESENT: conjunctiva pink, EOMI, PERRLA. ABSENT: scleral icterus Ear exam: PRESENT: normal external ear exam Mouth exam: PRESENT: moist, tongue midline Neck exam: ABSENT: carotid bruit, JVD, lymphadenopathy, thyromegaly Respiratory exam: PRESENT: clear to auscultation srikanth. ABSENT: rales, rhonchi, wheezes Cardiovascular exam: PRESENT: RRR. ABSENT: diastolic murmur, rubs, systolic murmur Pulses: PRESENT: normal dorsalis pedis pul Vascular exam: PRESENT: normal capillary refill GI/Abdominal exam: PRESENT: normal bowel sounds, soft. ABSENT: distended, guarding, mass, organolmegaly, rebound, tenderness Rectal exam: PRESENT: deferred Extremities exam: PRESENT: full ROM. ABSENT: calf tenderness, clubbing, pedal edema Neurological exam: PRESENT: alert, awake, oriented to person, oriented to place, oriented to time, oriented to situation, CN II-XII grossly intact. ABSENT: motor sensory deficit Psychiatric exam: PRESENT: appropriate affect, normal mood. ABSENT: homicidal ideation, suicidal ideation Skin exam: PRESENT: dry, intact, warm. ABSENT: cyanosis, rash Results Laboratory Results: 03/21/19 05:00 03/21/19 05:00 03/20/19 03/20/19 03/21/19 15:56 18:25 05:00 WBC 11.1 H 10.5 10.1 RBC 4.13 3.92 3.86 Hgb 12.6 12.0 12.0 Hct 38.0 35.9 L 35.6 L MCV 92 92 92 MCH 30.4 30.7 31.0 MCHC 33.1 33.5 33.7 RDW 17.1 H 16.8 H 17.5 H Plt Count 113 L 107 L 105 L Seg Neutrophils % 82.2 H Lymphocytes % 8.6 L Monocytes % 6.7 Eosinophils % 1.8 Basophils % 0.7 Absolute Neutrophils 8.3 H Absolute Lymphocytes 0.9 Absolute Monocytes 0.7 Absolute Eosinophils 0.2 Absolute Basophils 0.1 Sodium Potassium Chloride Carbon Dioxide Anion Gap BUN Creatinine Est GFR ( Amer) Est GFR (Non-Af Amer) Glucose Calcium Phosphorus Magnesium Albumin 03/21/19 05:00 WBC RBC Hgb Hct MCV MCH MCHC RDW Plt Count Seg Neutrophils % Lymphocytes % Monocytes % Eosinophils % Basophils % Absolute Neutrophils Absolute Lymphocytes Absolute Monocytes Absolute Eosinophils Absolute Basophils Sodium 138.7 Potassium 4.0 Chloride 104 Carbon Dioxide 30 Anion Gap 5 BUN 24 H Creatinine 1.92 H Est GFR ( Amer) 32 L Est GFR (Non-Af Amer) 27 L Glucose 143 H Calcium 9.1 Phosphorus 4.9 H Magnesium 1.5 L Albumin 2.7 L 03/19/19 03/19/19 14:51 14:51 Creatine Kinase 63 CK-MB (CK-2) 1.50 Troponin I 0.017 Impressions: Abdomen/Pelvis CT 03/19/19 00:00 IMPRESSION: Significant post biopsy right subcapsular hemorrhage, right kidney. Guidance Needle Placement CT 03/19/19 00:00 IMPRESSION: CT GUIDED RIGHT KIDNEY CORTICAL BIOPSY. Interventional Vascular Procedure 03/19/19 00:00 IMPRESSION: SUCCESSFUL PLACEMENT OF A 5 FR DUAL LUMEN 40 CM PICC IN THE RIGHT BASILIC VEIN. PICC Line Insertion 03/19/19 00:00 IMPRESSION: SUCCESSFUL PLACEMENT OF A 5 FR DUAL LUMEN 40 CM PICC IN THE RIGHT BASILIC VEIN. Renal Biopsy CT 03/19/19 00:00 IMPRESSION: CT GUIDED RIGHT KIDNEY CORTICAL BIOPSY. Chest X-Ray 03/20/19 12:00 IMPRESSION: NO ACUTE RADIOGRAPHIC FINDING IN THE CHEST. Assessment & Plan - Diagnosis (1) Hemorrhage following kidney biopsy Is this a current diagnosis for this admission?: Yes Plan: It probably was not anticoagulant related because the INR was normal on admission. Unfortunately patients with chronic kidney disease can be both coagulopathic in terms of creating more thrombotic events and having an increased chance of bleeding. I think it would be safer to give her a few more days off anticoagulation and follow-up as an outpatient with stable hemoglobin. Thereafter, her service technician or whomever is managing her anticoagulation can restart her Coumadin and follow closely with weekly CBCs over a 4-week period. We certainly can do this as well. We will leave it up to the hospitalist team as well as her service technician Dr. Espinosa on that. We will follow while admitted. (2) Arterial thrombosis Is this a current diagnosis for this admission?: Yes Plan: Recurrent arterial thrombosis, vasculopath, agree with lifelong anticoagulation, plan as above. - Time Time Spent: Greater than 70 Minutes - Inpatient Certification Based on my medical assessment, after consideration of the patient's comorbidities, presenting symptoms, or acuity I expect that the services needed warrant INPATIENT care.: Yes I certify that my determination is in accordance with my understanding of Medicare's requirements for reasonable and necessary INPATIENT services [42 CFR 412.3e].: Yes Medical Necessity: Need For Continuous Telemetry Monitoring, Risk of Complicat ion if Not Cared For in Hospital
[2019-03-21] MEDS: PATIROMER 8.4 GM SUSP PACKET PO SCH (13:26)
[2019-03-21] MEDS: POLYETHYLENE GLYCOL 3350 POWDER 17 GM/1 PACKET PO SCH (13:27)
[2019-03-21] MEDS: TRAMADOL HCL 50 MG TABLET PO PRN ×2 (16:13→22:17)
--- NOTE | 2019-03-21 16:54 | PDOC PROGRESS REPORT ---
Subjective Progress Note for:: 03/21/19 Subjective:: 63 y.o. F with a PMH of CAD (stents x2), DVT, HLD, HTN, PAD, carotid artery stenosis (carotid endarterectomy), DVT, CVA (residual right hemiplegia), diabetes type 2, chronic kidney disease, depression, tobacco dependency. Patient was admitted for hemorrhagic shock following renal biopsy. Postoperatively the patient received 4 units PRBCs. Serial CBCs have been m onitored, Hgb has remained stable for > 24hrs. Patient was seen this morning on rounds. She is resting comfortably in bed with supplemental oxygen via nasal cannula. Multiple family members at the bedside. The patient endorses dull right flank/lower back pain. She also endorses constipation, states she has not had a bowel movement in 3 days. L CTA. S1-S2. Moderate peripheral edema in the lower extremities. Abdomen is mildly TTP, no evidence of distention. + BS. Family had a number of questions today regarding when to resume Coumadin. Instructed the family that I was planning to consult hematology (Dr. Maddox). Additionally, I spent a great deal of time counseling the patient on the importance of smoking cessation. Patient states that she has not had a cigarette craving since her admission. Reason For Visit: ACUTE ARTERIAL BLEED POST RIGHT RENAL BIOPSY W Physical Exam Vital Signs: Temp Pulse Resp BP Pulse Ox 98.4 F 75 22 H 143/77 H 97 03/21/19 15:33 03/21/19 15:33 03/21/19 15:33 03/21/19 15:33 03/21/19 15:33 Intake & Output 03/20/19 03/21/19 03/22/19 06:59 06:59 06:59 Intake Total 1400 738 680 Output Total 235 2370 525 Balance 1165 -1632 155 Weight 120.1 kg 123.3 kg General appearance: PRESENT: morbidly obese Eye exam: PRESENT: conjunctiva pink, PERRLA Mouth exam: PRESENT: moist, tongue midline Teeth exam: PRESENT: edentulous Neck exam: PRESENT: full ROM Respiratory exam: PRESENT: clear to auscultation srikanth, decreased breath sounds - Bilateral lower lobes, symmetrical, unlabored Cardiovascular exam: PRESENT: RRR Pulses: PRESENT: normal radial pulses, +1 pedal pulses bilateral Vascular exam: PRESENT: pallor GI/Abdominal exam: PRESENT: soft, tenderness - Mild TTP. Abdomen is rotund and obese. ABSENT: distended Rectal exam: PRESENT: deferred Gentrourinary exam: PRESENT: indwelling catheter Extremities exam: PRESENT: pedal edema - +1 pitting edema in the lower extremities.. ABSENT: full ROM Musculoskeletal exam: PRESENT: ambulatory - With walker and RLE boot., deformity - Right hemiplegia. Right dropfoot.. ABSENT: full ROM Neurological exam: PRESENT: alert, awake, oriented to person, oriented to place, oriented to time, oriented to situation Psychiatric exam: PRESENT: appropriate affect Skin exam: PRESENT: dry, intact, pallor Results Laboratory Results: 03/21/19 05:00 03/21/19 05:00 03/20/19 03/21/19 03/21/19 18:25 05:00 05:00 WBC 10.5 10.1 RBC 3.92 3.86 Hgb 12.0 12.0 Hct 35.9 L 35.6 L MCV 92 92 MCH 30.7 31.0 MCHC 33.5 33.7 RDW 16.8 H 17.5 H Plt Count 107 L 105 L Seg Neutrophils % 82.2 H Lymphocytes % 8.6 L Monocytes % 6.7 Eosinophils % 1.8 Basophils % 0.7 Absolute Neutrophils 8.3 H Absolute Lymphocytes 0.9 Absolute Monocytes 0.7 Absolute Eosinophils 0.2 Absolute Basophils 0.1 Sodium 138.7 Potassium 4.0 Chloride 104 Carbon Dioxide 30 Anion Gap 5 BUN 24 H Creatinine 1.92 H Est GFR ( Amer) 32 L Est GFR (Non-Af Amer) 27 L Glucose 143 H Calcium 9.1 Phosphorus 4.9 H Magnesium 1.5 L Albumin 2.7 L 03/19/19 03/19/19 14:51 14:51 Creatine Kinase 63 CK-MB (CK-2) 1.50 Troponin I 0.017 Impressions: Abdomen/Pelvis CT 03/19/19 00:00 IMPRESSION: Significant post biopsy right subcapsular hemorrhage, right kidney. Guidance Needle Placement CT 03/19/19 00:00 IMPRESSION: CT GUIDED RIGHT KIDNEY CORTICAL BIOPSY. Interventional Vascular Procedure 03/19/19 00:00 IMPRESSION: SUCCESSFUL PLACEMENT OF A 5 FR DUAL LUMEN 40 CM PICC IN THE RIGHT BASILIC VEIN. PICC Line Insertion 03/19/19 00:00 IMPRESSION: SUCCESSFUL PLACEMENT OF A 5 FR DUAL LUMEN 40 CM PICC IN THE RIGHT BASILIC VEIN. Renal Biopsy CT 03/19/19 00:00 IMPRESSION: CT GUIDED RIGHT KIDNEY CORTICAL BIOPSY. Chest X-Ray 03/20/19 12:00 IMPRESSION: NO ACUTE RADIOGRAPHIC FINDING IN THE CHEST. Status: Imported from PACS Assessment and Plan - Diagnosis (1) Hemorrhage following kidney biopsy Is this a current diagnosis for this admission?: Yes Plan: Renal biopsy in the right lower pole, developed acute hemorrhage with perinephritic hematoma Postoperatively received 4 units PRBCs & monitored in ICU IR felt the patient was stable enough that she did not require coiling (+) Right flank tenderness Continue to monitor serial CBCs Hgb has remained>11 for 24 hours+ (2) Acute blood loss anemia Is this a current diagnosis for this admission?: Yes Plan: Secondary to renal biopsy & perinephritic hematoma Transfused 4 units PRBCs Monitor serial CBCs Transfuse for Hgb<8.0 (3) Diabetes mellitus type 2 in obese Is this a current diagnosis for this admission?: Yes Plan: PMH DM type II Schedule Lantus Accu-Cheks AC at bedtime Humalog sliding scale insulin (4) Hypertension Qualifiers: Hypertension type: essential hypertension Qualified Code(s): I10 - Essential (primary) hypertension Is this a current diagnosis for this admission?: Yes Plan: PMH HTN Takes metoprolol and lisinopril at home Resumed home dose metoprolol, lisinopril remains on hold due to low blood pressure As blood pressure increases, will likely be able to resume lisinopril (5) Morbid obesity with BMI of 45.0-49.9, adult Is this a current diagnosis for this admission?: Yes Plan: The patient would benefit significantly from weight loss considering all of her comorbidities. In addition to the diabetic/cardiac diet we will suggest more aggressive dieting for weight loss. (6) Tobacco dependency Is this a current diagnosis for this admission?: Yes Plan: It is shocking that with her multiple comorbidities she continues to smoke. Patient denies a desire to smoke, has no cravings Has not received nicotine patch Extensively counseled the patient on the need to quit smoking following discharge Patient and family state understanding (7) Expressive aphasia Is this a current diagnosis for this admission?: Yes Plan: Easily able to participate conversation Minimal deficit noted No acute interventions at this time (8) Hemiparesis affecting right side as late effect of cerebrovascular accident Is this a current diagnosis for this admission?: Yes Plan: PMH CVA x2 and hemorrhagic stroke x1 Right hemiparesis with right foot drop and diminished function in right hand Waiting for PT OT evaluation (9) CHF (congestive heart failure) Qualifiers: Heart failure type: diastolic Heart failure chronicity: chronic Qualified Code(s): I50.32 - Chronic diastolic (congestive) heart failure Is this a current diagnosis for this admission?: Yes Plan: PMH CHF, without exacerbation at this time Echocardiogram from November 2018 shows grade 2 diastolic failure with preserved EF Resume home dose Lasix (10) Chronic kidney failure Qualifiers: Chronic kidney disease stage: stage 3 (moderate) Qualified Code(s): N18.3 - Chronic kidney disease, stage 3 (moderate) Is this a current diagnosis for this admission?: Yes Plan: PMH CKD, stage III Improving. Creatinine 2.0-->1.9 Serum creatinine increased following her biopsy and hemorrhage, this is an expected finding Continue to monitor renal function with daily chemistries - Time Time Spent with patient: 15-24 minutes Medications reviewed and adjusted accordingly: Yes Anticipated discharge: Home Within: Other - When medically stable - Inpatient Certification Based on my medical assessment, after consideration of the patient's comorbidities, presenting symptoms, or acuity I expect that the services needed warrant INPATIENT care.: Yes I certify that my determination is in accordance with my understanding of Medicare's requirements for reasonable and necessary INPATIENT services [42 CFR 412.3e].: Yes Medical Necessity: Need For Continuous Telemetry Monitoring, Risk of Complication if Not Cared For in Hospital
[2019-03-21] MEDS: SENNOSIDES/DOCUSATE 8.6-50 MG 1 EACH TABLET PO SCH (17:13)
[2019-03-21] MEDS: ACETAMINOPHEN 325 MG TABLET PO PRN (20:20)
[2019-03-21] MEDS: ATORVASTATIN CALCIUM 80 MG TABLET PO SCH (22:17)
[2019-03-21] MEDS: DULOXETINE HCL 30 MG CAPSULE.DR PO SCH (22:17)
[2019-03-21] MEDS: INSULIN GLARGINE,HUM.REC.ANLOG 1,000 UNIT/10 ML VIAL SUBCUT SCH (22:18)
[2019-03-22 05:52] LABS: HEMATOCRIT 36.6 % (36.0-47.0); MEAN CORPUSCULAR HEMOGLOBIN 30.3 pg (27.0-33.4); MEAN CORPUSCULAR HGB CONC 32.8 g/dL (32.0-36.0); MEAN CORPUSCULAR VOLUME 92 fl (80-97); PLATELET COUNT 120 10^3/uL (150-450); RED BLOOD COUNT 3.96 10^6/uL (3.72-5.28); RED CELL DISTRIBUTION WIDTH 16.6 % (11.5-14.0); WHITE BLOOD COUNT 9.3 10^3/uL (4.0-10.5)
[2019-03-22 06:13] LABS: ALANINE AMINOTRANSFERASE 19 U/L (9-52); ALBUMIN 2.8 g/dL (3.5-5.0); ALKALINE PHOSPHATASE 80 U/L (38-126); ANION GAP 6 (5-19); ASPARTATE AMINO TRANSFERASE 23 U/L (14-36); BILIRUBIN,DIRECT 0.3 mg/dL (0.0-0.4); BILIRUBIN,TOTAL 0.9 mg/dL (0.2-1.3); BLOOD UREA NITROGEN 22 mg/dL (7-20); CALCIUM 8.9 mg/dL (8.4-10.2); CARBON DIOXIDE 30 mmol/L (22-30); CHLORIDE 102 mmol/L (98-107); GLUCOSE 118 mg/dL (75-110); PHOSPHORUS 5.5 mg/dL (2.5-4.5); POTASSIUM 3.9 mmol/L (3.6-5.0); SODIUM 137.9 mmol/L (137-145); TOTAL PROTEIN 5.5 g/dL (6.3-8.2)
[2019-03-22] MEDS: INSULIN LISPRO 100 UNIT/ML 3 ML VIAL SUBCUT SCH ×4 (08:17→21:33)
[2019-03-22] MEDS: FUROSEMIDE 20 MG TABLET PO SCH (08:17)
[2019-03-22] MEDS ORDERED: BISACODYL 10 MG SUPP.RECT PR ONE (09:30)
[2019-03-22] MEDS ORDERED: NA PHOS,M-B/NA PHOS,DI-BA (ADULT) 133 ML ENEMA PR PRN (09:31)
[2019-03-22] MEDS: METOPROLOL SUCCINATE 25 MG TAB.SR.24H PO SCH (09:35)
[2019-03-22] MEDS: GABAPENTIN 400 MG CAPSULE PO SCH ×4 (09:35→21:32)
[2019-03-22] MEDS: SENNOSIDES/DOCUSATE 8.6-50 MG 1 EACH TABLET PO SCH ×2 (09:35→18:05)
[2019-03-22] MEDS: EZETIMIBE 10 MG TABLET PO SCH (09:35)
[2019-03-22] MEDS: POLYETHYLENE GLYCOL 3350 POWDER 17 GM/1 PACKET PO SCH (09:36)
[2019-03-22] MEDS: NORMAL SALINE 10 ML SDV (SCHEDULED) IV SCH ×2 (09:36→21:41)
--- NOTE | 2019-03-22 09:41 | RADIOLOGY REPORT (SQ) ---
EXAM DESCRIPTION: KUB/ABDOMEN (SINGLE VIEW) COMPLETED DATE/TIME: 03/22/2019 9:20 am REASON FOR STUDY: abdominal pain N18.3 CHRONIC KIDNEY DISEASE, STAGE 3 (MODERATE) R80.9 PROTEINURI A, UNSPECIFIED COMPARISON: None. NUMBER OF VIEWS: One view. TECHNIQUE: Supine radiographic image of the abdomen acquired. LIMITATIONS: None. FINDINGS: BOWEL GAS PATTERN: Normal bowel gas pattern. No dilated loops. Prominent stool throughout the colon. CALCIFICATIONS: No suspicious calcifications. SOFT TISSUES: No gross mass or suggestion of organomegaly. HARDWARE: None in the abdomen. BONES: No acute fracture. No worrisome bone lesions. OTHER: No other significant finding. IMPRESSION: NO RADIOGRAPHIC EVIDENCE FOR ACUTE ABDOMINAL DISEASE. PROMINENT STOOL THROUGHOUT THE CO JULIANNA, POSSIBLE CONSTIPATION. TECHNICAL DOCUMENTATION: JOB ID: [id number] [employer]- All Rights Reserved Reading location - IP/workstation name: [email or web address]
[2019-03-22] MEDS: BISACODYL 10 MG SUPP.RECT PR SCH (11:31)
[2019-03-22] MEDS: PATIROMER 8.4 GM SUSP PACKET PO SCH (12:43)
--- NOTE | 2019-03-22 16:31 | PDOC PROGRESS REPORT ---
Subjective Progress Note for:: 03/22/19 Subjective:: 63 y.o. F with a PMH of CAD (stents x2), DVT, HLD, HTN, PAD, carotid artery stenosis (carotid endarterectomy), DVT, CVA (residual right hemiplegia), diabetes type 2, chronic kidney disease, depression, tobacco dependency. Patient was admitted for hemorrhagic shock following renal biopsy. Postoperatively the patient received 4 units PRBCs. Serial CBCs have been m onitored, Hgb has remained stable for > 24hrs. Creatinine continues to improve. Patient was seen this morning on rounds. She is resting comfortably in bed with supplemental oxygen via nasal cannula. Multiple family members at the bedside. The patient endorses dull right flank/lower back pain. She still endorses constipation, states she has not had a bowel movement in days. Abdomen is mildly TTP, no evidence of distention. + BS. KUB shows moderate amount of retained stool. Prescribed daily Dulcolax suppository and PRN fleets enema. Nursing staff notified this provider that the patient was able to have a bowel movement this afternoon. When she was straining, she passed a small clot in her Ramon catheter tubing. Since that time she has had bright red blood draining from her Ramon catheter bag. The patient states that she feels that she has to bear down in order to "push out the urine "from her bladder. We will plan for continuous bladder irrigation overnight and reassess in a.m. Reason For Visit: ACUTE ARTERIAL BLEED POST RIGHT RENAL BIOPSY W Physical Exam Vital Signs: Temp Pulse Resp BP Pulse Ox 98.2 F 72 16 146/75 H 96 03/22/19 14:42 03/22/19 14:42 03/22/19 14:42 03/22/19 14:42 03/22/19 14:42 Intake & Output 03/21/19 03/22/19 03/23/19 06:59 06:59 06:59 Intake Total 107 024 5379 Output Total 2370 2375 200 Balance -1632 -1455 1467 Weight 123.3 kg 125.2 kg General appearance: PRESENT: no acute distress, morbidly obese Head exam: PRESENT: atraumatic, normocephalic Eye exam: PRESENT: conjunctiva pink, EOMI, PERRLA. ABSENT: scleral icterus Ear exam: PRESENT: normal external ear exam Mouth exam: PRESENT: moist, tongue midline Neck exam: PRESENT: full ROM. ABSENT: carotid bruit, JVD, lymphadenopathy, thyromegaly Respiratory exam: PRESENT: clear to auscultation srikanth, decreased breath sounds - Bilateral lobes. Due to body habitus, symmetrical, unlabored. ABSENT: rales, rhonchi, wheezes Cardiovascular exam: PRESENT: RRR. ABSENT: diastolic murmur, rubs, systolic murmur Pulses: PRESENT: normal radial pulses, normal dorsalis pedis pul Vascular exam: PRESENT: normal capillary refill GI/Abdominal exam: PRESENT: normal bowel sounds, soft. ABSENT: distended, guarding, mass, organolmegaly, rebound, tenderness Rectal exam: PRESENT: deferred Extremities exam: PRESENT: full ROM. ABSENT: calf tenderness, clubbing, pedal edema Musculoskeletal exam: PRESENT: ambulatory - With walker, full ROM Neurological exam: PRESENT: alert, awake, oriented to person, oriented to place, oriented to time, oriented to situation Psychiatric exam: PRESENT: appropriate affect, normal mood Skin exam: PRESENT: dry, intact, warm. ABSENT: cyanosis, rash Results Laboratory Results: 03/22/19 05:30 03/22/19 05:30 03/22/19 03/22/19 05:30 05:30 WBC 9.3 RBC 3.96 Hgb 12.0 Hct 36.6 MCV 92 MCH 30.3 MCHC 32.8 RDW 16.6 H Plt Count 120 L Sodium 137.9 Potassium 3.9 Chloride 102 Carbon Dioxide 30 Anion Gap 6 BUN 22 H Creatinine 1.47 H Est GFR ( Amer) 44 L Est GFR (Non-Af Amer) 36 L Glucose 118 H Calcium 8.9 Phosphorus 5.5 H Magnesium 1.8 Total Bilirubin 0.9 AST 23 ALT 19 Alkaline Phosphatase 80 Total Protein 5.5 L Albumin 2.8 L 03/19/19 03/19/19 14:51 14:51 Creatine Kinase 63 CK-MB (CK-2) 1.50 Troponin I 0.017 Impressions: Abdomen/Pelvis CT 03/19/19 00:00 IMPRESSION: Significant post biopsy right subcapsular hemorrhage, right kidney. Guidance Needle Placement CT 03/19/19 00:00 IMPRESSION: CT GUIDED RIGHT KIDNEY CORTICAL BIOPSY. Interventional Vascular Procedure 03/19/19 00:00 IMPRESSION: SUCCESSFUL PLACEMENT OF A 5 FR DUAL LUMEN 40 CM PICC IN THE RIGHT BASILIC VEIN. PICC Line Insertion 03/19/19 00:00 IMPRESSION: SUCCESSFUL PLACEMENT OF A 5 FR DUAL LUMEN 40 CM PICC IN THE RIGHT B ASILIC VEIN. Renal Biopsy CT 03/19/19 00:00 IMPRESSION: CT GUIDED RIGHT KIDNEY CORTICAL BIOPSY. Chest X-Ray 03/20/19 12:00 IMPRESSION: NO ACUTE RADIOGRAPHIC FINDING IN THE CHEST. KUB X-Ray 03/22/19 08:50 IMPRESSION: NO RADIOGRAPHIC EVIDENCE FOR ACUTE ABDOMINAL DISEASE. PROMINENT STOOL THROUGHOUT THE COLON, POSSIBLE CONSTIPATION. Status: Imported from PACS Assessment and Plan - Diagnosis (1) Hemorrhage following kidney biopsy Is this a current diagnosis for this admission?: Yes Plan: Renal biopsy in the right lower pole, developed acute hemorrhage with perinephri tic hematoma Postoperatively received 4 units PRBCs & monitored in ICU IR felt the patient was stable enough that she did not require coiling (+) Right flank tenderness Continue to monitor serial CBCs Hgb has remained>11 for 24 hours+ (2) Acute blood loss anemia Is this a current diagnosis for this admission?: Yes Plan: Secondary to renal biopsy & perinephritic hematoma Transfused 4 units PRBCs Monitor serial CBCs Transfuse for Hgb<8.0 (3) Diabetes mellitus type 2 in obese Is this a current diagnosis for this admission?: Yes Plan: PMH DM type II Schedule Lantus Accu-Cheks AC at bedtime Humalog sliding scale insulin (4) Hypertension Qualifiers: Hypertension type: essential hypertension Qualified Code(s): I10 - Essential (primary) hypertension Is this a current diagnosis for this admission?: Yes Plan: PMH HTN Takes metoprolol and lisinopril at home Resumed home dose metoprolol, lisinopril was held due to low blood pressure SBP today is 140-155, will resume home dose lisinopril (5) Morbid obesity with BMI of 45.0-49.9, adult Is this a current diagnosis for this admission?: Yes Plan: The patient would benefit significantly from weight loss considering all of her comorbidities. In addition to the diabetic/cardiac diet we will suggest more aggressive dieting for weight loss. (6) Tobacco dependency Is this a current diagnosis for this admission?: Yes Plan: It is shocking that with her multiple comorbidities she continues to smoke. Patient denies a desire to smoke, has no cravings Has not received nicotine patch Extensively counseled the patient on the need to quit smoking following discharge Patient and family state understanding (7) Expressive aphasia Is this a current diagnosis for this admission?: Yes Plan: Easily able to participate conversation Minimal deficit noted No acute interventions at this time (8) Hemiparesis affecting right side as late effect of cerebrovascular accident Is this a current diagnosis for this admission?: Yes Plan: H CVA x2 and hemorrhagic stroke x1 Right hemiparesis with right foot drop and diminished function in right hand Waiting for PT OT evaluation (9) CHF (congestive heart failure) Qualifiers: Heart failure type: diastolic Heart failure chronicity: chronic Qualified Code(s): I50.32 - Chronic diastolic (congestive) heart failure Is this a current diagnosis for this admission?: Yes Plan: [facility] CHF, without exacerbation at this time Echocardiogram from November 2018 shows grade 2 diastolic failure with preserved EF Resume home dose Lasix (10) Chronic kidney failure Qualifiers: Chronic kidney disease stage: stage 3 (moderate) Qualified Code(s): N18.3 - Chronic kidney disease, stage 3 (moderate) Is this a current diagnosis for this admission?: Yes Plan: H CKD, stage III Improving. Creatinine 2.0-->1.47 Serum creatinine increased following her biopsy and hemorrhage, this is an expected finding Continue to monitor renal function with daily chemistries - Time Time Spent with patient: 15-24 minutes Medications reviewed and adjusted accordingly: Yes Anticipated discharge: Home Within: within 48 hours - Inpatient Certification Based on my medical assessment, after consideration of the patient's comorbidities, presenting symptoms, or acuity I expect that the services needed warrant INPATIENT care.: Yes I certify that my determination is in accordance with my understanding of Medicare's requirements for reasonable and necessary INPATIENT services [42 CFR 412.3e].: Yes Medical Necessity: Risk of Complication if Not Cared For in Hospital
[2019-03-22] MEDS ORDERED: LISINOPRIL 10 MG TABLET PO ONE (17:45)
[2019-03-22] MEDS: ATORVASTATIN CALCIUM 80 MG TABLET PO SCH (21:32)
[2019-03-22] MEDS: DULOXETINE HCL 30 MG CAPSULE.DR PO SCH (21:33)
[2019-03-22] MEDS: INSULIN GLARGINE,HUM.REC.ANLOG 1,000 UNIT/10 ML VIAL SUBCUT SCH (21:34)
[2019-03-23] MEDS: INSULIN LISPRO 100 UNIT/ML 3 ML VIAL SUBCUT SCH ×4 (07:43→21:51)
--- NOTE | 2019-03-23 07:49 | PDOC PROGRESS REPORT ---
Subjective Progress Note for:: 03/23/19 Subjective:: Patient states that she is feeling much better and is anxious to go home. She does not believe there has been any further bleeding. No change in flank pain. ROS: No dyspnea. No nausea. No new bruising. Reason For Visit: ACUTE ARTERIAL BLEED POST RIGHT RENAL BIOPSY W Physical Exam Vital Signs: Temp Pulse Resp BP Pulse Ox 97.6 F 82 20 157/83 H 95 03/23/19 03:55 03/23/19 03:55 03/23/19 03:55 03/23/19 03:55 03/23/19 03:55 Intake & Output 03/22/19 03/23/19 03/24/19 06:59 06:59 06:59 Intake Total 920 1907 Output Total 2375 6000 Balance -1455 -4090 Weight 125.2 kg 122.4 kg General appearance: PRESENT: no acute distress, obese, well-developed Head exam: PRESENT: normocephalic Respiratory exam: PRESENT: clear to auscultation srikanth, unlabored Cardiovascular exam: PRESENT: RRR GI/Abdominal exam: PRESENT: soft. ABSENT: tenderness Neurological exam: PRESENT: alert, awake Psychiatric exam: PRESENT: appropriate affect Skin exam: PRESENT: normal color Results Laboratory Results: 03/22/19 05:30 03/22/19 05:30 03/19/19 03/19/19 14:51 14:51 Creatine Kinase 63 CK-MB (CK-2) 1.50 Troponin I 0.017 Impressions: Abdomen/Pelvis CT 03/19/19 00:00 IMPRESSION: Significant post biopsy right subcapsular hemorrhage, right kidney. Guidance Needle Placement CT 03/19/19 00:00 IMPRESSION: CT GUIDED RIGHT KIDNEY CORTICAL BIOPSY. Interventional Vascular Procedure 03/19/19 00:00 IMPRESSION: SUCCESSFUL PLACEMENT OF A 5 FR DUAL LUMEN 40 CM PICC IN THE RIGHT BASILIC VEIN. PICC Line Insertion 03/19/19 00:00 IMPRESSION: SUCCESSFUL PLACEMENT OF A 5 FR DUAL LUMEN 40 CM PICC IN THE RIGHT BASILIC VEIN. Renal Biopsy CT 03/19/19 00:00 IMPRESSION: CT GUIDED RIGHT KIDNEY CORTICAL BIOPSY. Chest X-Ray 03/20/19 12:00 IMPRESSION: NO ACUTE RADIOGRAPHIC FINDING IN THE CHEST. KUB X-Ray 03/22/19 08:50 IMPRESSION: NO RADIOGRAPHIC EVIDENCE FOR ACUTE ABDOMINAL DISEASE. PROMINENT STOOL THROUGHOUT THE COLON, POSSIBLE CONSTIPATION. Assessment & Plan - Diagnosis (1) Acute blood loss anemia Is this a current diagnosis for this admission?: Yes Plan: Her HGB has been stable for the past 3 days. No evidence of significant blood loss currently. However, still with some hematuria. (2) Hemorrhage following kidney biopsy Is this a current diagnosis for this admission?: Yes Plan: Her warfarin continues to be on hold. I would continue to hold this until after discharge and then discuss with cardiology/PCP about when to restart. I believe her risk of bleeding is still greater than her risk of clotting right now. - Plan Summary Plan Summary: Please call with any questions or concerns.
[2019-03-23] MEDS: FUROSEMIDE 20 MG TABLET PO SCH (07:50)
[2019-03-23 08:41] LABS: HEMATOCRIT 37.3 % (36.0-47.0); HEMOGLOBIN 12.5 g/dL (12.0-15.5); MEAN CORPUSCULAR HGB CONC 33.5 g/dL (32.0-36.0); MEAN CORPUSCULAR VOLUME 93 fl (80-97); PLATELET COUNT 130 10^3/uL (150-450); RED BLOOD COUNT 4.03 10^6/uL (3.72-5.28); RED CELL DISTRIBUTION WIDTH 16.5 % (11.5-14.0)
--- NOTE | 2019-03-23 08:53 | PDOC PROGRESS REPORT ---
Subjective Progress Note for:: 03/23/19 Subjective:: 63 y.o. F with a PMH of CAD (stents x2), DVT, HLD, HTN, PAD, carotid artery stenosis (carotid endarterectomy), DVT, CVA (residual right hemiplegia), diabetes type 2, chronic kidney disease, depression, tobacco dependency. Patient was admitted for hemorrhagic shock following renal biopsy. Postoperatively the patient received 4 units PRBCs. Serial CBCs have been monitored, Hgb has remained stable for > 24hrs. Creatinine continues to improve. Patient was seen this morning on rounds. She is resting comfortably in bed with supplemental oxygen via nasal cannula. She tolerated CBI overnight, fluid was clamped for 30 minutes this morning and patient began passing clots in her urine again. Urine color is red/clear. Will resume CBI today. Labs are currently pending. Waiting for nephrology recommendations. Plan to keep patient at [facility] for hematuria following traumatic injury to R kidney. Anticipate discharge in 48hrs-72hrs. Reason For Visit: ACUTE ARTERIAL BLEED POST RIGHT RENAL BIOPSY W Physical Exam Vital Signs: Temp Pulse Resp BP Pulse Ox 97.6 F 83 16 157/83 H 94 03/23/19 03:55 03/23/19 08:21 03/23/19 08:21 03/23/19 03:55 03/23/19 08:21 Intake & Output 03/22/19 03/23/19 03/24/19 06:59 06:59 06:59 Intake Total 920 1907 Output Total 2375 6000 Balance -1455 -4093 Weight 125.2 kg 122.4 kg General appearance: PRESENT: no acute distress, morbidly obese Head exam: PRESENT: atraumatic, normocephalic Eye exam: PRESENT: conjunctiva pink, EOMI, PERRLA. ABSENT: scleral icterus Ear exam: PRESENT: normal external ear exam Mouth exam: PRESENT: moist, tongue midline Neck exam: PRESENT: full ROM. ABSENT: carotid bruit, JVD, lymphadenopathy, thyromegaly Respiratory exam: PRESENT: clear to auscultation srikanth, symmetrical, unlabored, other - requiring supplemental O2 via nasal cannula. ABSENT: rales, rhonchi, wheezes Cardiovascular exam: PRESENT: RRR. ABSENT: diastolic murmur, rubs, systolic murmur Pulses: PRESENT: normal radial pulses, normal dorsalis pedis pul Vascular exam: PRESENT: normal capillary refill GI/Abdominal exam: PRESENT: normal bowel sounds, soft. ABSENT: distended, guarding, mass, organolmegaly, rebound, tenderness Rectal exam: PRESENT: deferred Extremities exam: PRESENT: full ROM. ABSENT: calf tenderness, clubbing, pedal edema Musculoskeletal exam: PRESENT: ambulatory - with walker, full ROM, normal inspection. ABSENT: deformity Neurological exam: PRESENT: alert, awake, oriented to person, oriented to place, oriented to time, oriented to situation Psychiatric exam: PRESENT: appropriate affect, normal mood Skin exam: PRESENT: dry, intact, warm. ABSENT: cyanosis, rash Results Laboratory Results: 03/19/19 03/19/19 14:51 14:51 Creatine Kinase 63 CK-MB (CK-2) 1.50 Troponin I 0.017 Impressions: Abdomen/Pelvis CT 03/19/19 00:00 IMPRESSION: Significant post biopsy right subcapsular hemorrhage, right kidney. Guidance Needle Placement CT 03/19/19 00:00 IMPRESSION: CT GUIDED RIGHT KIDNEY CORTICAL BIOPSY. Interventional Vascular Procedure 03/19/19 00:00 IMPRESSION: SUCCESSFUL PLACEMENT OF A 5 FR DUAL LUMEN 40 CM PICC IN THE RIGHT BASILIC VEIN. PICC Line Insertion 03/19/19 00:00 IMPRESSION: SUCCESSFUL PLACEMENT OF A 5 FR DUAL LUMEN 40 CM PICC IN THE RIGHT BASILIC VEIN. Renal Biopsy CT 03/19/19 00:00 IMPRESSION: CT GUIDED RIGHT KIDNEY CORTICAL BIOPSY. Chest X-Ray 03/20/19 12:00 IMPRESSION: NO ACUTE RADIOGRAPHIC FINDING IN THE CHEST. KUB X-Ray 03/22/19 08:50 IMPRESSION: NO RADIOGRAPHIC EVIDENCE FOR ACUTE ABDOMINAL DISEASE. PROMINENT STOOL THROUGHOUT THE COLON, POSSIBLE CONSTIPATION. Status: Imported from PACS Assessment and Plan - Diagnosis (1) Hemorrhage following kidney biopsy Is this a current diagnosis for this admission?: Yes Plan: Renal biopsy in the right lower pole, developed acute hemorrhage with perinephritic hematoma Postoperatively received 4 units PRBCs & monitored in ICU IR felt the patient was stable enough that she did not require coiling Mild (+) Right flank tenderness Started passing clots in her Ramon yesterday, initiated CBI Continue to monitor serial CBCs Hgb has remained>11 for 24 hours+ (2) Acute blood loss anemia Is this a current diagnosis for this admission?: Yes Plan: Secondary to renal biopsy & perinephritic hematoma Transfused 4 units PRBCs Monitor serial CBCs Transfuse for Hgb<8.0 (3) Diabetes mellitus type 2 in obese Is this a current diagnosis for this admission?: Yes Plan: H DM type II Schedule Lantus Accu-Cheks AC at bedtime Humalog sliding scale insulin (4) Hypertension Qualifiers: Hypertension type: essential hypertension Qualified Code(s): I10 - Essential (primary) hypertension Is this a current diagnosis for this admission?: Yes Plan: PMH HTN Takes metoprolol and lisinopril at home Resumed home dose Toprol XL, lisinopril was initially held due to low blood pressure SBP yesterday is 140-155, resumed home dose lisinopril, SBP remains elevated Initiate daily amlodipine today (5) Morbid obesity with BMI of 45.0-49.9, adult Is this a current diagnosis for this admission?: Yes Plan: The patient would benefit significantly from weight loss considering all of her comorbidities. In addition to the diabetic/cardiac diet we will suggest more aggressive dieting for weight loss. (6) Tobacco dependency Is this a current diagnosis for this admission?: Yes Plan: It is shocking that with her multiple comorbidities she continues to smoke. Patient denies a desire to smoke, has no cravings Has not received nicotine patch Extensively counseled the patient on the need to quit smoking following discharge Patient and family state understanding (7) Expressive aphasia Is this a current diagnosis for this admission?: Yes Plan: Easily able to participate conversation Minimal deficit noted No acute interventions at this time (8) Hemiparesis affecting right side as late effect of cerebrovascular accident Is this a current diagnosis for this admission?: Yes Plan: PMH CVA x2 and hemorrhagic stroke x1 Right hemiparesis with right foot drop and diminished function in right hand Waiting for PT OT evaluation (9) CHF (congestive heart failure) Qualifiers: Heart failure type: diastolic Heart failure chronicity: chronic Qualified Code(s): I50.32 - Chronic diastolic (congestive) heart failure Is this a current diagnosis for this admission?: Yes Plan: H CHF, without exacerbation at this time Echocardiogram from November 2018 shows grade 2 diastolic failure with preserved EF Resume home dose Lasix (10) Chronic kidney failure Qualifiers: Chronic kidney disease stage: stage 3 (moderate) Qualified Code(s): N18.3 - Chronic kidney disease, stage 3 (moderate) Is this a current diagnosis for this admission?: Yes Plan: H CKD, stage III Improving. Creatinine 2.0-->1.47 Serum creatinine increased following her biopsy and hemorrhage, this is an expected finding Continue to monitor renal function with daily chemistries - Time Time Spent with patient: 15-24 minutes Medications reviewed and adjusted accordingly: Yes Anticipated discharge: Home with Homehealth Within: within 48 hours, within 72 hours - Inpatient Certification Based on my medical assessment, after consideration of the patient's comorbidities, presenting symptoms, or acuity I expect that the services needed warrant INPATIENT care.: Yes I certify that my determination is in accordance with my understanding of Medicare's requirements for reasonable and necessary INPATIENT services [42 CFR 412.3e].: Yes Medical Necessity: Need Close Monitoring Due to Risk of Patient Decompensation, Need For IV Fluids, Need For Continuous Telemetry Monitoring, Risk of Complication if Not Cared For in Hospital
[2019-03-23 08:55] LABS: ALANINE AMINOTRANSFERASE 21 U/L (9-52); ALBUMIN 2.7 g/dL (3.5-5.0); ALKALINE PHOSPHATASE 80 U/L (38-126); ANION GAP 5 (5-19); ASPARTATE AMINO TRANSFERASE 25 U/L (14-36); BILIRUBIN,DIRECT 0.3 mg/dL (0.0-0.4); BLOOD UREA NITROGEN 21 mg/dL (7-20); CALCIUM 9.1 mg/dL (8.4-10.2); CARBON DIOXIDE 32 mmol/L (22-30); CHLORIDE 101 mmol/L (98-107); GLUCOSE 123 mg/dL (75-110); PHOSPHORUS 5.2 mg/dL (2.5-4.5); POTASSIUM 4.1 mmol/L (3.6-5.0); SODIUM 138.4 mmol/L (137-145); TOTAL PROTEIN 5.7 g/dL (6.3-8.2)
[2019-03-23] MEDS: TRAMADOL HCL 50 MG TABLET PO PRN ×2 (09:04→17:22)
[2019-03-23] MEDS: GABAPENTIN 400 MG CAPSULE PO SCH ×4 (09:05→21:50)
[2019-03-23] MEDS: SENNOSIDES/DOCUSATE 8.6-50 MG 1 EACH TABLET PO SCH ×2 (09:05→17:21)
[2019-03-23] MEDS: LISINOPRIL 10 MG TABLET PO SCH (09:06)
[2019-03-23] MEDS: METOPROLOL SUCCINATE 25 MG TAB.SR.24H PO SCH (09:06)
[2019-03-23] MEDS: EZETIMIBE 10 MG TABLET PO SCH (09:06)
[2019-03-23] MEDS: BISACODYL 10 MG SUPP.RECT PR SCH (09:12)
[2019-03-23] MEDS: POLYETHYLENE GLYCOL 3350 POWDER 17 GM/1 PACKET PO SCH (09:14)
[2019-03-23] MEDS: AMLODIPINE BESYLATE 5 MG TABLET PO SCH (09:15)
[2019-03-23] MEDS: NORMAL SALINE 10 ML SDV (SCHEDULED) IV SCH ×2 (09:15→21:50)
[2019-03-23] MEDS: PATIROMER 8.4 GM SUSP PACKET PO SCH (12:13)
[2019-03-23] MEDS: ACETAMINOPHEN 325 MG TABLET PO PRN (13:30)
--- NOTE | 2019-03-23 14:30 | Progress Note Acknowledgement ---
Progress Note Acknowledgement Progess Note Acknowledgement: I, the undersigned member of the medical staff with appropriate privileges and with supervisory authority over [nikki klein ], a [facility] practice allied health professional, acknowledge that I have reviewed the progress notes entered on this patient, and in my professional judgment believe that the assessment made and/or any care evidenced was appropriate
[2019-03-23] MEDS: DULOXETINE HCL 30 MG CAPSULE.DR PO SCH (21:50)
[2019-03-23] MEDS: ATORVASTATIN CALCIUM 80 MG TABLET PO SCH (21:50)
[2019-03-23] MEDS: INSULIN GLARGINE,HUM.REC.ANLOG 1,000 UNIT/10 ML VIAL SUBCUT SCH (21:50)
[2019-03-24 05:35] LABS: HEMATOCRIT 36.4 % (36.0-47.0); HEMOGLOBIN 12.1 g/dL (12.0-15.5); MEAN CORPUSCULAR HEMOGLOBIN 30.6 pg (27.0-33.4); MEAN CORPUSCULAR HGB CONC 33.4 g/dL (32.0-36.0); MEAN CORPUSCULAR VOLUME 92 fl (80-97); PLATELET COUNT 144 10^3/uL (150-450); RED BLOOD COUNT 3.97 10^6/uL (3.72-5.28); RED CELL DISTRIBUTION WIDTH 16.3 % (11.5-14.0); WHITE BLOOD COUNT 8.7 10^3/uL (4.0-10.5)
[2019-03-24 06:06] LABS: ALANINE AMINOTRANSFERASE 21 U/L (9-52); ALBUMIN 2.8 g/dL (3.5-5.0); ALKALINE PHOSPHATASE 80 U/L (38-126); ASPARTATE AMINO TRANSFERASE 27 U/L (14-36); BILIRUBIN,DIRECT 0.3 mg/dL (0.0-0.4); BILIRUBIN,TOTAL 1.1 mg/dL (0.2-1.3); BLOOD UREA NITROGEN 21 mg/dL (7-20); CHLORIDE 100 mmol/L (98-107); GLUCOSE 102 mg/dL (75-110); PHOSPHORUS 5.1 mg/dL (2.5-4.5); POTASSIUM 4.3 mmol/L (3.6-5.0); TOTAL PROTEIN 5.6 g/dL (6.3-8.2)
[2019-03-24 06:11] LABS: CARBON DIOXIDE 34 mmol/L (22-30); SODIUM 137.8 mmol/L (137-145)
[2019-03-24 06:16] LABS: ANION GAP 4 (5-19)
[2019-03-24] MEDS: INSULIN LISPRO 100 UNIT/ML 3 ML VIAL SUBCUT SCH ×4 (09:01→21:52)
[2019-03-24] MEDS: TRAMADOL HCL 50 MG TABLET PO PRN (09:16)
[2019-03-24] MEDS: AMLODIPINE BESYLATE 5 MG TABLET PO SCH (09:16)
[2019-03-24] MEDS: LISINOPRIL 10 MG TABLET PO SCH (09:17)
[2019-03-24] MEDS: FUROSEMIDE 20 MG TABLET PO SCH (09:17)
[2019-03-24] MEDS: EZETIMIBE 10 MG TABLET PO SCH (09:17)
[2019-03-24] MEDS: GABAPENTIN 400 MG CAPSULE PO SCH ×4 (09:18→21:51)
[2019-03-24] MEDS: SENNOSIDES/DOCUSATE 8.6-50 MG 1 EACH TABLET PO SCH ×2 (09:18→17:11)
[2019-03-24] MEDS: METOPROLOL SUCCINATE 25 MG TAB.SR.24H PO SCH (09:18)
[2019-03-24] MEDS: BISACODYL 10 MG SUPP.RECT PR SCH (09:19)
[2019-03-24] MEDS: NORMAL SALINE 10 ML SDV (SCHEDULED) IV SCH ×2 (09:19→21:51)
[2019-03-24] MEDS: POLYETHYLENE GLYCOL 3350 POWDER 17 GM/1 PACKET PO SCH (09:20)
[2019-03-24] MEDS: PATIROMER 8.4 GM SUSP PACKET PO SCH (13:08)
[2019-03-24] MEDS: ACETAMINOPHEN 325 MG TABLET PO PRN (13:26)
--- NOTE | 2019-03-24 18:08 | Progress Note Acknowledgement ---
Progress Note Acknowledgement Progess Note Acknowledgement: I, the undersigned member of the medical staff with appropriate privileges and with supervisory authority over Angelina Vazquez, a [facility] practice allied health professional, acknowledge that I have reviewed the progress notes entered on this patient, and in my professional judgment believe that the assessment made and/or any care evidenced was appropriate
--- NOTE | 2019-03-24 18:20 | PDOC PROGRESS REPORT ---
Subjective Progress Note for:: 03/24/19 Subjective:: 63 y.o. F with a PMH of CAD (stents x2), DVT, HLD, HTN, PAD, carotid artery stenosis (carotid endarterectomy), DVT, CVA (residual right hemiplegia), diabetes type 2, chronic kidney disease, depression, tobacco dependency. Patient was admitted for hemorrhagic shock following renal biopsy. Postoperatively the patient received 4 units PRBCs. Hgb now stable and gross hematuria is improved. Patient was seen on afternoon rounds. She was found resting in the recliner comfortably on supplemental oxygen via nasal cannula at 4 L/min. CBI fluids have been stopped since early this morning; she has pink-tinged urine with sediment and small clots. She denies abdominal discomfort at this time. Overall she states that she is feeling well and would like to be discharged to home as soon as possible. She denies fever, chills, chest pain, palpitations, dyspnea, orthopnea, cough, abdominal pain, nausea vomiting diarrhea. She has no other questions or concerns at this time. No concerns per nursing. Reason For Visit: ACUTE ARTERIAL BLEED POST RIGHT RENAL BIOPSY W Physical Exam Vital Signs: Temp Pulse Resp BP Pulse Ox 98.5 F 80 20 165/86 H 96 03/24/19 11:41 03/24/19 14:00 03/24/19 11:41 03/24/19 11:41 03/24/19 11:41 Intake & Output 03/23/19 03/24/19 03/25/19 06:59 06:59 06:59 Intake Total 1907 360 530 Output Total 4893 67407 9240 Balance -[facility] -[id number] -[id number] Weight 122.4 kg 122 kg General appearance: PRESENT: no acute distress, morbidly obese, well-developed, well-nourished Head exam: PRESENT: atraumatic, normocephalic Eye exam: PRESENT: conjunctiva pink, EOMI, PERRLA. ABSENT: scleral icterus Ear exam: PRESENT: normal external ear exam Mouth exam: PRESENT: moist, tongue midline Neck exam: ABSENT: carotid bruit, JVD, lymphadenopathy, thyromegaly Respiratory exam: PRESENT: clear to auscultation srikanth, decreased breath sounds - Bibasilar secondary to body habitus, positioning, and poor inspiratory effort., symmetrical, unlabored, other - Supplemental oxygen via nasal cannula. ABSENT: rales, rhonchi, wheezes Cardiovascular exam: PRESENT: RRR. ABSENT: diastolic murmur, rubs, systolic murmur Pulses: PRESENT: normal dorsalis pedis pul Vascular exam: PRESENT: normal capillary refill GI/Abdominal exam: PRESENT: normal bowel sounds, soft. ABSENT: distended, guarding, mass, organolmegaly, rebound, tenderness Rectal exam: PRESENT: deferred Gentrourinary exam: PRESENT: indwelling catheter Extremities exam: PRESENT: full ROM. ABSENT: calf tenderness, clubbing, pedal edema Musculoskeletal exam: PRESENT: ambulatory - With walker Neurological exam: PRESENT: alert, awake, oriented to person, oriented to place, oriented to time, oriented to situation, CN II-XII grossly intact, other - Slurred speech; at baseline [place] to previous CVA. ABSENT: motor sensory deficit Psychiatric exam: PRESENT: appropriate affect, normal mood. ABSENT: homicidal ideation, suicidal ideation Skin exam: PRESENT: dry, intact, warm. ABSENT: cyanosis, rash Results Laboratory Results: 03/24/19 05:04 03/24/19 05:04 03/24/19 03/24/19 05:04 05:04 WBC 8.7 RBC 3.97 Hgb 12.1 Hct 36.4 MCV 92 MCH 30.6 MCHC 33.4 RDW 16.3 H Plt Count 144 L Sodium 137.8 Potassium 4.3 Chloride 100 Carbon Dioxide 34 H Anion Gap 4 L BUN 21 H Creatinine 1.28 H Est GFR ( Amer) 51 L Est GFR (Non-Af Amer) 42 L Glucose 102 Calcium 9.0 Phosphorus 5.1 H Magnesium 1.7 Total Bilirubin 1.1 AST 27 ALT 21 Alkaline Phosphatase 80 Total Protein 5.6 L Albumin 2.8 L 03/19/19 03/19/19 03/24/19 14:51 14:51 05:04 Creatine Kinase 63 CK-MB (CK-2) 1.50 Troponin I 0.017 NT-Pro-B Natriuret Pep 3750 H Impressions: Abdomen/Pelvis CT 03/19/19 00:00 IMPRESSION: Significant post biopsy right subcapsular hemorrhage, right kidney. Guidance Needle Placement CT 03/19/19 00:00 IMPRESSION: CT GUIDED RIGHT KIDNEY CORTICAL BIOPSY. Interventional Vascular Procedure 03/19/19 00:00 IMPRESSION: SUCCESSFUL PLACEMENT OF A 5 FR DUAL LUMEN 40 CM PICC IN THE RIGHT BASILIC VEIN. PICC Line Insertion 03/19/19 00:00 IMPRESSION: SUCCESSFUL PLACEMENT OF A 5 FR DUAL LUMEN 40 CM PICC IN THE RIGHT BASILIC VEIN. Renal Biopsy CT 03/19/19 00:00 IMPRESSION: CT GUIDED RIGHT KIDNEY CORTICAL BIOPSY. Chest X-Ray 03/20/19 12:00 IMPRESSION: NO ACUTE RADIOGRAPHIC FINDING IN THE CHEST. KUB X-Ray 03/22/19 08:50 IMPRESSION: NO RADIOGRAPHIC EVIDENCE FOR ACUTE ABDOMINAL DISEASE. PROMINENT STOOL THROUGHOUT THE COLON, POSSIBLE CONSTIPATION. Assessment and Plan - Diagnosis (1) Hemorrhage following kidney biopsy Is this a current diagnosis for this admission?: Yes Plan: Significantly improved; faint pink-tinged urine with scant blood clots noted today. Renal biopsy in the right lower pole, developed acute hemorrhage with perinephritic hematoma Postoperatively received 4 units PRBCs & monitored in ICU IR felt the patient was stable enough that she did not require coiling Mild (+) Right flank tenderness; resolved Started passing clots in her Ramon with gross hematuria 630/19. Initiated CBI Continue to monitor serial CBCs Hgb has remained >12 for 48 hours+ CBI discontinued today. Ramon catheter is removed. Will bladder scan every 6 hours and straight cath for >200 mL's. (2) Acute blood loss anemia Is this a current diagnosis for this admission?: Yes Plan: Resolved. Secondary to renal biopsy & perinephritic hematoma Transfused 4 units PRBCs Monitor serial CBCs Transfuse for Hgb<8.0 (3) Chronic kidney failure Qualifiers: Chronic kidney disease stage: stage 3 (moderate) Qualified Code(s): N18.3 - Chronic kidney disease, stage 3 (moderate) Is this a current diagnosis for this admission?: Yes Plan: [facility] CKD, stage III Improving. Creatinine 2.0-->1.47-> 1.28 Serum creatinine increased following her biopsy and hemorrhage, this is an expected finding Continue to monitor renal function with daily chemistries Avoid nephrotoxic medications as able. Follow-up with Dr. Espinosa as previously scheduled following discharge. (4) CHF (congestive heart failure) Qualifiers: Heart failure type: diastolic Heart failure chronicity: chronic Qualified Code(s): I50.32 - Chronic diastolic (congestive) heart failure Is this a current diagnosis for this admission?: Yes Plan: [facility] CHF, without exacerbation at this time Echocardiogram from November 2018 shows grade 2 diastolic failure with preserved EF proBNP 3750 Continue home dose lisinopril and Lasix Continue Norvasc 5 mg daily, metoprolol 25 mg daily, and daily atorvastatin Cardiac diet. Daily weights. (5) Diabetes mellitus type 2 in obese Is this a current diagnosis for this admission?: Yes Plan: PMH DM type II Consistent carb/cardiac diet. Schedule Lantus 46 units nightly. Accu-Cheks before meals and at bedtime with Humalog sliding scale insulin Hypoglycemia protocol in place. (6) Expressive aphasia Is this a current diagnosis for this admission?: Yes Plan: Easily able to participate conversation Minimal deficit noted No acute interventions at this time (7) Hemiparesis affecting right side as late effect of cerebrovascular accident Is this a current diagnosis for this admission?: Yes Plan: PMH CVA x2 and hemorrhagic stroke x1 Right hemiparesis with right foot drop and diminished function in right hand Recommend home health physical therapy at discharge. (8) Hypertension Qualifiers: Hypertension type: essential hypertension Qualified Code(s): I10 - Essential (primary) hypertension Is this a current diagnosis for this admission?: Yes Plan: PMH HTN Continue home dose metoprolol, lisinopril, and furosemide. Continue daily amlodipine (9) Morbid obesity with BMI of 45.0-49.9, adult Is this a current diagnosis for this admission?: Yes Plan: The patient would benefit significantly from weight loss considering all of her comorbidities. In addition to the diabetic/cardiac diet we will suggest more aggressive dieting for weight loss. - Time Time Spent with patient: 25-34 minutes Medications reviewed and adjusted accordingly: Yes Anticipated discharge: Home with Homehealth Within: within 24 hours
[2019-03-24] MEDS: ATORVASTATIN CALCIUM 80 MG TABLET PO SCH (21:50)
[2019-03-24] MEDS: DULOXETINE HCL 30 MG CAPSULE.DR PO SCH (21:50)
[2019-03-24] MEDS: INSULIN GLARGINE,HUM.REC.ANLOG 1,000 UNIT/10 ML VIAL SUBCUT SCH (21:52)
[2019-03-25 05:27] LABS: HEMATOCRIT 35.8 % (36.0-47.0); HEMOGLOBIN 12.1 g/dL (12.0-15.5); MEAN CORPUSCULAR HGB CONC 33.8 g/dL (32.0-36.0); MEAN CORPUSCULAR VOLUME 92 fl (80-97); PLATELET COUNT 139 10^3/uL (150-450); RED CELL DISTRIBUTION WIDTH 15.7 % (11.5-14.0); WHITE BLOOD COUNT 9.1 10^3/uL (4.0-10.5)
[2019-03-25 05:36] LABS: ANION GAP 5 (5-19); BLOOD UREA NITROGEN 22 mg/dL (7-20); CALCIUM 8.8 mg/dL (8.4-10.2); CARBON DIOXIDE 33 mmol/L (22-30); CHLORIDE 99 mmol/L (98-107); GLUCOSE 122 mg/dL (75-110); POTASSIUM 4.1 mmol/L (3.6-5.0); SODIUM 137.2 mmol/L (137-145)
[2019-03-25] MEDS: INSULIN LISPRO 100 UNIT/ML 3 ML VIAL SUBCUT SCH ×2 (08:15→12:12)
[2019-03-25] MEDS: FUROSEMIDE 20 MG TABLET PO SCH (08:59)
[2019-03-25] MEDS: EZETIMIBE 10 MG TABLET PO SCH (09:51)
[2019-03-25] MEDS: LISINOPRIL 10 MG TABLET PO SCH (09:51)
[2019-03-25] MEDS: SENNOSIDES/DOCUSATE 8.6-50 MG 1 EACH TABLET PO SCH (09:52)
[2019-03-25] MEDS: GABAPENTIN 400 MG CAPSULE PO SCH ×2 (09:52→14:35)
[2019-03-25] MEDS: AMLODIPINE BESYLATE 5 MG TABLET PO SCH (09:53)
[2019-03-25] MEDS: METOPROLOL SUCCINATE 25 MG TAB.SR.24H PO SCH (09:53)
[2019-03-25] MEDS: BISACODYL 10 MG SUPP.RECT PR SCH (09:54)
[2019-03-25] MEDS: NORMAL SALINE 10 ML SDV (SCHEDULED) IV SCH (09:56)
[2019-03-25] MEDS: POLYETHYLENE GLYCOL 3350 POWDER 17 GM/1 PACKET PO SCH (09:56)
[2019-03-25] MEDS: PATIROMER 8.4 GM SUSP PACKET PO SCH (12:54)
[2019-03-25 15:33] VITALS: BP 120/74
== END 2019-03-25 16:02 | disposition home or self-care (01) | DRG 920 ==
LOC: RAD 05:32 → ICU 12:00 → UNDOADMIN 12:35 → 3W 03-20 14:35
PROVIDERS: ADMIT Hospitalist; ATTEND Hospitalist
PROC: 0TB04ZX Excision of Right Kidney, Percutaneous Endoscopic Approach, Diagnostic (ICD-10-PCS; principal; 2019-03-19)
PROC: 30233N1 Transfusion of Nonautologous Red Blood Cells into Peripheral Vein, Percutaneous Approach (ICD-10-PCS; 2019-03-19)
PROC: 02HV33Z Insertion of Infusion Device into Superior Vena Cava, Percutaneous Approach (ICD-10-PCS; 2019-03-19)
DX: N99.820 Postprocedural hemorrhage of a genitourinary system organ or structure following a genitourinary system procedure (principal); I69.351 Hemiplegia and hemiparesis following cerebral infarction affecting right dominant side; D62 Acute posthemorrhagic anemia; Z68.42 Body mass index [BMI] 45.0-49.9, adult; I74.9 Embolism and thrombosis of unspecified artery; I13.0 Hypertensive heart and chronic kidney disease with heart failure and stage 1 through stage 4 chronic kidney disease, or unspecified chronic kidney disease; I50.32 Chronic diastolic (congestive) heart failure; N18.3 Chronic kidney disease, stage 3 (moderate); I25.10 Atherosclerotic heart disease of native coronary artery without angina pectoris; E78.5 Hyperlipidemia, unspecified; E11.51 Type 2 diabetes mellitus with diabetic peripheral angiopathy without gangrene; E11.22 Type 2 diabetes mellitus with diabetic chronic kidney disease; I69.320 Aphasia following cerebral infarction; F32.9 Major depressive disorder, single episode, unspecified; F17.200 Nicotine dependence, unspecified, uncomplicated; Z91.040 Latex allergy status; Z91.048 Other nonmedicinal substance allergy status; Z79.4 Long term (current) use of insulin; E66.01 Morbid (severe) obesity due to excess calories; M21.371 Foot drop, right foot
CPT/HCPCS: 36415; 36430; 36569; 50200; 71045; 74018; 74176; 76937; 77012; 80048; 80053; 80069; 82550; 82553; 82565; 82962; 83735; 83880; 84100; 84132; 84484; 84520; 85025; 85027; 85610; 85730; 86850; 86900; 86901; 86920; C1758; J0360; J1642; J1815; J1940; J2250; J2405; J3010; J3475; J3490; P9016; P9047

== ENCOUNTER → 2019-03-30 | Outpatient (CLI) | payer BC ==
[2019-03-30 10:13] LABS: ABSOLUTE BASOPHILS # (AUTO) 0.1 10^3/uL (0.0-0.2); ABSOLUTE EOSINOPHILS # (AUTO) 0.4 10^3/uL (0.0-0.6); ABSOLUTE LYMPHOCYTES (AUTO) 0.8 10^3/uL (0.5-4.7); ABSOLUTE MONOCYTES (AUTO) 0.7 10^3/uL (0.1-1.4); ABSOLUTE NEUT (AUTO) 8.5 10^3/uL (1.7-8.2); BASOPHILS % (AUTO) 0.7 % (0-2); EOSINOPHILS % (AUTO) 4.1 % (0-6); HEMATOCRIT 40.1 % (36.0-47.0); HEMOGLOBIN 13.3 g/dL (12.0-15.5); LYMPHOCYTES % (AUTO) 7.6 % (13-45); MEAN CORPUSCULAR HEMOGLOBIN 30.6 pg (27.0-33.4); MEAN CORPUSCULAR HGB CONC 33.2 g/dL (32.0-36.0); MEAN CORPUSCULAR VOLUME 92 fl (80-97); MONOCYTES % (AUTO) 6.9 % (3-13); PLATELET COUNT 190 10^3/uL (150-450); RED BLOOD COUNT 4.35 10^6/uL (3.72-5.28); RED CELL DISTRIBUTION WIDTH 16.1 % (11.5-14.0); SEGMENTED NEUTROPHILS % (AUTO) 80.7 % (42-78); TOTAL CELLS COUNTED % (AUTO) 100 %; WHITE BLOOD COUNT 10.5 10^3/uL (4.0-10.5)
[2019-03-30 10:42] LABS: BLOOD UREA NITROGEN 30 mg/dL (7-20); CALCIUM 9.1 mg/dL (8.4-10.2); GLUCOSE 123 mg/dL (75-110); POTASSIUM 4.6 mmol/L (3.6-5.0)
[2019-03-30 10:51] LABS: CARBON DIOXIDE 36 mmol/L (22-30); CHLORIDE 100 mmol/L (98-107); SODIUM 139.4 mmol/L (137-145)
[2019-03-30 10:58] LABS: ANION GAP 3 (5-19)
[2019-03-30 11:44] LABS: URIC ACID CRYSTALS,URINE TOO NUMEROUS TO CNT /HPF
[2019-03-30 11:46] LABS: APPEARANCE,URINE CLOUDY; BILIRUBIN,URINE NEGATIVE (NEGATIVE); COLOR,URINE RED; GLUCOSE, URINE NEGATIVE (NEGATIVE); KETONES,URINE NEGATIVE (NEGATIVE)
[2019-03-30 11:47] LABS: LEUKOCYTE ESTERASE,URINE NEGATIVE (NEGATIVE); NITRITE,URINE NEGATIVE (NEGATIVE); PROTEIN,URINE >=500 mg/dL (NEGATIVE); UROBILINOGEN,URINE NEGATIVE mg/dL (<2.0)
== END ==
LOC: OD 09:04
PROVIDERS: ATTEND Internal Medicine Nephrology
DX: E11.22 Type 2 diabetes mellitus with diabetic chronic kidney disease (principal); I12.9 Hypertensive chronic kidney disease with stage 1 through stage 4 chronic kidney disease, or unspecified chronic kidney disease; N18.3 Chronic kidney disease, stage 3 (moderate)
CPT/HCPCS: 36415; 80048; 81001; 85025; 87086; 87088; 87186

== ENCOUNTER → 2019-04-16 | Outpatient (CLI) | payer BC ==
--- NOTE | 2019-04-16 11:42 | RADIOLOGY REPORT (SQ) ---
EXAM DESCRIPTION: CT ABDOMEN NO ORAL OR IV COMPLETED DATE/TIME: 04/16/2019 10:02 am REASON FOR STUDY: CKD III (N18.3), HYPERTENSIVE CKD (I12.9) N18.3 CHRONIC KIDNEY DISEASE, STAGE 3 ( MODERATE) I12.9 HYPERTENSIVE CHRONIC KIDNEY DISEASE W STG 1-4/UNSP CHR N17.9 ACUTE KIDNEY FAILURE, UNSPECIFIED COMPARISON: 03/22/2019 TECHNIQUE: CT scan of the abdomen performed without intravenous contrast and without oral contrast. Images reviewed with lung, soft tissue, and bone windows. Reconstructed coronal and sagittal MPR im ages reviewed. All images stored on PACS. All CT scanners at this facility use dose modulation, iterative reconstruction, and/or weight based d osing when appropriate to reduce radiation dose to as low as reasonably achievable (ALARA). [facility]: Dose Right [facility]: CareDose [facility]: Dose Right [facility]: Teradose 4D [facility]: Smart fitogram RADIATION DOSE: CT Rad equipment meets quality standard of care and radiation dose reduction techniq ues were employed. CTDIvol: 26.7 - 29.4 mGy. DLP: 1454 mGy-cm.mGy. LIMITATIONS: None. FINDINGS: LOWER CHEST: Coronary atherosclerosis. Mild dependent hypoventilatory change. NONCONTRASTED LIVER, SPLEEN, ADRENALS: Evaluation limited by lack of IV contrast. No identified sign ificant masses. PANCREAS: No masses. No peripancreatic inflammatory changes. GALLBLADDER: Decompressed. No radiopaque stones. RIGHT KIDNEY AND URETER: There is mildly increased size of the heterogeneous right perinephric jimenez ection measuring up to 12.0 x 5.2 cm maximally, previously 11.3 x 5.0 cm. The collection demonstrate s hyperdense and hypodense components, likely secondary to evolution of blood products. Evaluation f or active extravasation limited on this noncontrast exam. No hydronephrosis. Punctate nonobstructin g calcification within the hilum possibly nonobstructing stone versus vascular calcification. LEFT KIDNEY AND URETER: No suspicious masses. Assessment limited by lack of IV contrast. Atrophic w ith scattered cortical calcifications. No hydronephrosis or hydroureter. AORTA AND RETROPERITONEUM: Aortoiliac atherosclerosis with dense plaque throughout the right iliac ar amber. Partially visualized vascular graft along the right lateral chest and abdominal wall compatibl e with an ax fem bypass. BOWEL AND PERITONEAL CAVITY: No obvious masses or inflammatory changes. No free fluid. APPENDIX: Normal. ABDOMINAL WALL: No focal masses. No large hernia. Right axillary to femoral bypass, partially evalu ated. BONES: No acute bony abnormality. No suspicious osseous lesions. Lower lumbar facet arthropathy. OTHER: No other significant finding. IMPRESSION: 1. Mildly increased size of the right perinephric hematoma compared to prior exam now measuring 12.0 x 5.2 cm, previously 11.3 x 5.0 cm with heterogeneous internal density most compatible with evolving blood products. Evaluation for active bleeding limited on this noncontrast exam. If clinical concern for continued bleeding multiphase CT could be considered. 2. No other evidence of acute intra-abdominal/pelvic process. Chronic findings as above. TECHNICAL DOCUMENTATION: JOB ID: [id number] Quality ID # [id number]: Final reports with documentation of one or more dose reduction techniques (e.g., Au tomated exposure control, adjustment of the mA and/or kV according to patient size, use of iterative reconstruction technique) 2010 [employer]- All Rights Reserved Reading location - IP/workstation name: [email or web address]
== END ==
LOC: RAD 09:35
PROVIDERS: ATTEND Internal Medicine Nephrology
DX: E11.22 Type 2 diabetes mellitus with diabetic chronic kidney disease (principal); I12.9 Hypertensive chronic kidney disease with stage 1 through stage 4 chronic kidney disease, or unspecified chronic kidney disease; N18.3 Chronic kidney disease, stage 3 (moderate); N17.9 Acute kidney failure, unspecified
CPT/HCPCS: 74150

== ENCOUNTER → 2019-11-27 | Outpatient (CLI) | payer BC ==
--- NOTE | 2019-11-27 14:19 | WOMENS IMAGING REPORT ---
EXAM DESCRIPTION: BILAT SCREENING MAMMO W/CAD COMPLETED DATE/TIME: 11/27/2019 11:03 am REASON FOR STUDY: Z85.3 BILAT SCREENING Z85.3 PERSONAL HISTORY OF MALIGNANT NEOPLASM OF BREAST COMPARISON: 2014 to 2016 EXAM PARAMETERS: Standard craniocaudal and mediolateral oblique views of each breast recorded using digital acquisition. Read with the assistance of CAD. .[facility] - [place] [employer] Senior Environmental Engineer Version 9.2 LIMITATIONS: None. FINDINGS: No suspicious masses, suspicious calcifications or architectural distortion. No areas of c oncern. IMPRESSION: Negative MAMMOGRAM. BIRADS 1 BREAST DENSITY: b. There are scattered areas of fibroglandular density. BIRAD: ASSESSMENT: 1 NEGATIVE RECOMMENDATION: ROUTINE SCREENING COMMENT: The patient has been notified of the results by letter per MQSA requirements. Additional no tification policies are in place for contacting patient with suspicious or incomplete findings. Quality ID #[id number]: The [employer] recommends an annual screening mammogram for women aged 40 years or over. This facility utilizes a reminder system to ensure that all patients receive reminder letters, and/or direct phone calls for appointments. This includes reminders for routine scr eening mammograms, diagnostic mammograms, or other Breast Imaging Interventions when appropriate. Th is patient will be placed in the appropriate reminder system. TECHNICAL DOCUMENTATION: FINDING NUMBER: (1) ASSESSMENT: (1) JOB ID: [id number] 2010 [employer]- All Rights Reserved Reading location - IP/workstation name: [email or web address]
== END ==
LOC: WI 10:30
PROVIDERS: ATTEND Family Medicine
DX: Z12.31 Encounter for screening mammogram for malignant neoplasm of breast (principal); Z08 Encounter for follow-up examination after completed treatment for malignant neoplasm; Z85.3 Personal history of malignant neoplasm of breast
CPT/HCPCS: 77067